=== PATIENT | female | born 1955 | race Caucasian/White ===

== ENCOUNTER 2016-08-23 05:48 | Outpatient (RCR) | payer OTHER ==
[~2016-08-23] VITALS: Ht 30.5 cm; Wt 0.5 kg
[2016-08-23] MEDS ORDERED: Glycopyrrolate 0.2mg/ml 1ml Vial ONE (05:49)
[2016-08-23] MEDS ORDERED: NS 550ML IV ONE (05:49)
[2016-08-23] MEDS ORDERED: Diazepam 10mg/2ml Inj ONE (05:49)
[2016-08-23] MEDS ORDERED: Succinylcholine 20mg/ml 10ml vial ONE (05:49)
[2016-08-23] MEDS ORDERED: Ketamine 500mg Inj ONE (05:49)
[2016-08-23] MEDS ORDERED: Heplock Flush 100 units/ml 3 ml syr IV ONE (07:30)
== END 2016-09-03 | disposition home or self-care (01) ==
LOC: ECT 05:48
DX: F31.63 Bipolar disorder, current episode mixed, severe, without psychotic features (principal); F60.9 Personality disorder, unspecified; M79.7 Fibromyalgia; M26.609 Unspecified temporomandibular joint disorder, unspecified side
CPT/HCPCS: 90870; J0330; J1642; J3360; J3490; J7040

== ENCOUNTER 2016-09-13 07:33 | Outpatient (RCR) | payer OTHER ==
[~2016-09-13] VITALS: Ht 167.6 cm; Wt 95.3 kg
[2016-09-13] MEDS ORDERED: NS 550ML IV ONE (07:34)
[2016-09-13] MEDS ORDERED: Heplock Flush 100 units/ml 3 ml syr ONE ×2 (07:34)
[2016-09-13] MEDS ORDERED: Glycopyrrolate 0.2mg/ml 1ml Vial ONE (07:34)
[2016-09-13] MEDS ORDERED: Ketamine 500mg Inj ONE (07:34)
[2016-09-13] MEDS ORDERED: Succinylcholine 20mg/ml 10ml vial ONE (07:34)
[2016-09-13] MEDS ORDERED: Diazepam 10mg/2ml Inj ONE (07:34)
[2016-09-13] MEDS ORDERED: Heplock Flush 100 units/ml 3 ml syr IV ONE (12:30)
[2016-09-18] MEDS ORDERED: NS 550ML IV ONE (12:30)
[2016-09-18] MEDS ORDERED: Diazepam 10mg/2ml Inj ONE (12:30)
[2016-09-18] MEDS ORDERED: Ketamine 500mg Inj ONE (12:30)
[2016-09-18] MEDS ORDERED: Glycopyrrolate 0.2mg/ml 1ml Vial ONE (12:30)
[2016-09-18] MEDS ORDERED: Succinylcholine 20mg/ml 10ml vial ONE (12:30)
[2016-09-18] MEDS ORDERED: Atropine Sulfate 0.4mg/ml inj IVP PRN (17:15)
[2016-09-18] MEDS ORDERED: Heplock Flush 100 units/ml 3 ml syr IV ONE (17:30)
[2016-09-20] MEDS ORDERED: Heplock Flush 100 units/ml 3 ml syr IV ONE (07:15)
[2016-09-20] MEDS ORDERED: Succinylcholine 20mg/ml 10ml vial ONE (12:30)
[2016-09-20] MEDS ORDERED: Diazepam 10mg/2ml Inj ONE (12:30)
[2016-09-20] MEDS ORDERED: Ketamine 500mg Inj ONE (12:30)
[2016-09-20] MEDS ORDERED: Glycopyrrolate 0.2mg/ml 1ml Vial ONE (12:30)
[2016-09-20] MEDS ORDERED: NS 550ML IV ONE (12:30)
[2016-09-20] MEDS ORDERED: Heplock Flush 100 units/ml 3 ml syr IV SCH (20:45)
[2016-09-25] MEDS ORDERED: NS 550ML IV ONE (07:34)
[2016-09-25] MEDS ORDERED: Glycopyrrolate 0.2mg/ml 1ml Vial ONE (07:34)
[2016-09-25] MEDS ORDERED: Ketamine 500mg Inj ONE (07:34)
[2016-09-25] MEDS ORDERED: Succinylcholine 20mg/ml 10ml vial ONE (07:34)
[2016-09-25] MEDS ORDERED: Diazepam 10mg/2ml Inj ONE (07:34)
[2016-09-25] MEDS ORDERED: Heplock Flush 100 units/ml 3 ml syr IV SCH (16:15)
[2016-09-27] MEDS ORDERED: Heplock Flush 100 units/ml 3 ml syr IV ONE ×2 (10:30→22:45)
[2016-09-27] MEDS ORDERED: Ketamine 500mg Inj ONE (22:32)
[2016-09-27] MEDS ORDERED: Glycopyrrolate 0.2mg/ml 1ml Vial ONE (22:32)
[2016-09-27] MEDS ORDERED: Succinylcholine 20mg/ml 10ml vial ONE (22:32)
[2016-09-27] MEDS ORDERED: Diazepam 10mg/2ml Inj ONE (22:32)
[2016-09-27] MEDS ORDERED: NS 550ML IV ONE (22:32)
[2016-09-30] MEDS ORDERED: Diazepam 10mg/2ml Inj ONE (12:30)
[2016-09-30] MEDS ORDERED: Glycopyrrolate 0.2mg/ml 1ml Vial ONE (12:30)
[2016-09-30] MEDS ORDERED: Succinylcholine 20mg/ml 10ml vial ONE (12:30)
[2016-09-30] MEDS ORDERED: Ketamine 500mg Inj ONE (12:30)
[2016-09-30] MEDS ORDERED: NS 550ML IV ONE (12:30)
[2016-10-02] MEDS ORDERED: Heplock Flush 100 units/ml 3 ml syr ONE (10:12)
== END 2016-10-01 | disposition home or self-care (01) ==
LOC: ECT 07:33
DX: F31.63 Bipolar disorder, current episode mixed, severe, without psychotic features (principal)
CPT/HCPCS: 90870; J0330; J1642; J3360; J3490; J7040

== ENCOUNTER 2016-10-02 11:58 | Outpatient (RCR) | payer OTHER ==
[~2016-10-02] VITALS: Ht 167.6 cm; Wt 95.3 kg
[~2016-10-02 11:58] MED LIST: Heplock Flush 100 units/ml 3 ml syr INJ ONE
[2016-10-02] MEDS ORDERED: Succinylcholine 20mg/ml 10ml vial ONE ×2 (11:59)
[2016-10-02] MEDS ORDERED: Ketamine 500mg Inj ONE ×2 (11:59)
[2016-10-02] MEDS ORDERED: NS 550ML IV ONE ×2 (11:59)
[2016-10-02] MEDS ORDERED: Diazepam 10mg/2ml Inj ONE ×2 (11:59)
[2016-10-02] MEDS ORDERED: Glycopyrrolate 0.2mg/ml 1ml Vial ONE ×2 (11:59)
[2016-10-04] MEDS ORDERED: Heplock Flush 100 units/ml 3 ml syr INJ SCH (06:40)
[2016-10-04] MEDS ORDERED: Heplock Flush 100 units/ml 3 ml syr ONE (08:10)
[2016-10-04] MEDS ORDERED: Diazepam 10mg/2ml Inj ONE (11:59)
[2016-10-04] MEDS ORDERED: Ketamine 500mg Inj ONE (11:59)
[2016-10-04] MEDS ORDERED: Succinylcholine 20mg/ml 10ml vial ONE (11:59)
[2016-10-04] MEDS ORDERED: Glycopyrrolate 0.2mg/ml 1ml Vial ONE (11:59)
[2016-10-04] MEDS ORDERED: NS 550ML IV ONE (11:59)
[2016-10-11] MEDS ORDERED: Heplock Flush 100 units/ml 3 ml syr IV ONE (07:38)
[2016-10-11] MEDS ORDERED: Atropine Sulfate 0.4mg/ml inj IVP PRN ×2 (07:38→11:30)
[2016-10-11] MEDS ORDERED: Glycopyrrolate 0.2mg/ml 1ml Vial ONE (11:59)
[2016-10-11] MEDS ORDERED: Ketamine 500mg Inj ONE (11:59)
[2016-10-11] MEDS ORDERED: NS 550ML IV ONE (11:59)
[2016-10-11] MEDS ORDERED: Succinylcholine 20mg/ml 10ml vial ONE (11:59)
[2016-10-11] MEDS ORDERED: Diazepam 10mg/2ml Inj ONE (11:59)
[2016-10-16] MEDS ORDERED: Ketamine 500mg Inj ONE (08:00)
[2016-10-16] MEDS ORDERED: Glycopyrrolate 0.2mg/ml 1ml Vial ONE (08:00)
[2016-10-16] MEDS ORDERED: Succinylcholine 20mg/ml 10ml vial ONE (08:00)
[2016-10-16] MEDS ORDERED: NS 550ML IV ONE (08:00)
[2016-10-16] MEDS ORDERED: Diazepam 10mg/2ml Inj ONE (08:00)
[2016-10-16] MEDS ORDERED: Heplock Flush 100 units/ml 3 ml syr IV ONE ×2 (09:35→14:45)
[2016-10-18] MEDS ORDERED: Diazepam 10mg/2ml Inj ONE (08:00)
[2016-10-18] MEDS ORDERED: Succinylcholine 20mg/ml 10ml vial ONE (08:00)
[2016-10-18] MEDS ORDERED: NS 550ML IV ONE (08:00)
[2016-10-18] MEDS ORDERED: Glycopyrrolate 0.2mg/ml 1ml Vial ONE (08:00)
[2016-10-18] MEDS ORDERED: Ketamine 500mg Inj ONE (08:00)
[2016-10-18] MEDS ORDERED: Heplock Flush 100 units/ml 3 ml syr IV ONE (08:55)
[2016-10-18] MEDS ORDERED: Heplock Flush 100 units/ml 3 ml syr ONE (12:30)
[2016-10-21] MEDS ORDERED: Atropine Sulfate 0.4mg/ml inj IVP PRN (05:30)
[2016-10-21] MEDS ORDERED: Heplock Flush 100 units/ml 3 ml syr IV ONE (09:45)
[2016-10-21] MEDS ORDERED: NS 550ML IV ONE (11:59)
[2016-10-21] MEDS ORDERED: Diazepam 10mg/2ml Inj ONE (11:59)
[2016-10-21] MEDS ORDERED: Ketamine 500mg Inj ONE (11:59)
[2016-10-21] MEDS ORDERED: Glycopyrrolate 0.2mg/ml 1ml Vial ONE (11:59)
[2016-10-21] MEDS ORDERED: Succinylcholine 20mg/ml 10ml vial ONE (11:59)
[2016-10-23] MEDS ORDERED: Atropine Sulfate 0.4mg/ml inj IVP PRN (08:00)
[2016-10-23] MEDS ORDERED: Diazepam 10mg/2ml Inj ONE (08:00)
[2016-10-23] MEDS ORDERED: Succinylcholine 20mg/ml 10ml vial ONE (08:00)
[2016-10-23] MEDS ORDERED: Glycopyrrolate 0.2mg/ml 1ml Vial ONE (08:00)
[2016-10-23] MEDS ORDERED: Ketamine 500mg Inj ONE (08:00)
[2016-10-23] MEDS ORDERED: NS 550ML IV ONE (08:00)
[2016-10-23] MEDS ORDERED: Heplock Flush 100 units/ml 3 ml syr IV ONE (10:15)
[2016-10-25] MEDS ORDERED: Heplock Flush 100 units/ml 3 ml syr IV ONE ×2 (07:15→07:48)
[2016-10-30] MEDS ORDERED: Heplock Flush 100 units/ml 3 ml syr IV ONE (07:00)
[2016-10-30] MEDS ORDERED: Ketamine 500mg Inj ONE (11:00)
[2016-10-30] MEDS ORDERED: Succinylcholine 20mg/ml 10ml vial ONE (11:00)
[2016-10-30] MEDS ORDERED: Glycopyrrolate 0.2mg/ml 1ml Vial ONE (11:00)
[2016-10-30] MEDS ORDERED: Diazepam 10mg/2ml Inj ONE (11:00)
[2016-10-30] MEDS ORDERED: NS 550ML IV ONE (11:00)
== END 2016-11-01 | disposition home or self-care (01) ==
LOC: ECT 11:58
DX: F31.63 Bipolar disorder, current episode mixed, severe, without psychotic features (principal); Z88.0 Allergy status to penicillin; Z88.8 Allergy status to other drugs, medicaments and biological substances
CPT/HCPCS: 90870; J0330; J1642; J3360; J3490; J7040

== ENCOUNTER 2016-11-08 05:09 | Outpatient (RCR) | payer OTHER ==
[~2016-11-08] VITALS: Ht 167.6 cm; Wt 95.3 kg
[2016-11-08] MEDS ORDERED: Succinylcholine 20mg/ml 10ml vial ONE ×2 (05:10)
[2016-11-08] MEDS ORDERED: Diazepam 10mg/2ml Inj ONE ×2 (05:10)
[2016-11-08] MEDS ORDERED: NS 550ML IV ONE (05:10)
[2016-11-08] MEDS ORDERED: Ketamine 500mg Inj ONE ×2 (05:10)
[2016-11-08] MEDS ORDERED: Glycopyrrolate 0.2mg/ml 1ml Vial ONE ×2 (05:10)
[2016-11-08] MEDS ORDERED: Heplock Flush 100 units/ml 3 ml syr ONE ×2 (05:10)
[2016-11-08] MEDS ORDERED: Heplock Flush 100 units/ml 3 ml syr IV ONE (07:20)
[2016-11-15] MEDS ORDERED: Heplock Flush 100 units/ml 3 ml syr IV ONE (09:00)
[2016-11-15] MEDS ORDERED: Glycopyrrolate 0.2mg/ml 1ml Vial ONE (21:14)
[2016-11-15] MEDS ORDERED: Ketamine 500mg Inj ONE (21:14)
[2016-11-15] MEDS ORDERED: Succinylcholine 20mg/ml 10ml vial ONE (21:14)
[2016-11-15] MEDS ORDERED: NS 550ML IV ONE (21:14)
[2016-11-15] MEDS ORDERED: Diazepam 10mg/2ml Inj ONE (21:14)
[2016-11-22] MEDS ORDERED: Succinylcholine 20mg/ml 10ml vial ONE (07:00)
[2016-11-22] MEDS ORDERED: Diazepam 10mg/2ml Inj ONE (07:00)
[2016-11-22] MEDS ORDERED: Glycopyrrolate 0.2mg/ml 1ml Vial ONE (07:00)
[2016-11-22] MEDS ORDERED: NS 550ML IV ONE (07:00)
[2016-11-22] MEDS ORDERED: Ketamine 500mg Inj ONE (07:00)
[2016-11-22] MEDS ORDERED: Heplock Flush 100 units/ml 3 ml syr INJ ONE (18:30)
[2016-11-29] MEDS ORDERED: Succinylcholine 20mg/ml 10ml vial ONE (08:00)
[2016-11-29] MEDS ORDERED: NS 550ML IV ONE (08:00)
[2016-11-29] MEDS ORDERED: Diazepam 10mg/2ml Inj ONE (08:00)
[2016-11-29] MEDS ORDERED: Glycopyrrolate 0.2mg/ml 1ml Vial ONE (08:00)
[2016-11-29] MEDS ORDERED: Ketamine 500mg Inj ONE (08:00)
[2016-11-29] MEDS ORDERED: Heplock Flush 100 units/ml 3 ml syr ONE (13:28)
[2016-11-29] MEDS ORDERED: Heplock Flush 100 units/ml 3 ml syr IV ONE (15:15)
== END 2016-12-01 | disposition home or self-care (01) ==
LOC: ECT 05:09
DX: F31.63 Bipolar disorder, current episode mixed, severe, without psychotic features (principal)
CPT/HCPCS: 90870; J0330; J1642; J3360; J3490; J7040

== ENCOUNTER 2016-12-06 06:08 | Outpatient (RCR) | payer OTHER ==
[~2016-12-06] VITALS: Ht 167.6 cm; Wt 95.3 kg
[~2016-12-06 06:08] MED LIST changes: -Heplock Flush 100 units/ml 3 ml syr INJ ONE; +Methohexital Sodium Syr 100mg/10ml IVP ONE; +NS 550ML IV ONE; +Succinylcholine 20mg/ml 10ml vial ONE
[2016-12-06] MEDS ORDERED: Succinylcholine 20mg/ml 10ml vial ONE (06:09)
[2016-12-06] MEDS ORDERED: Glycopyrrolate 0.2mg/ml 1ml Vial ONE (06:09)
[2016-12-06] MEDS ORDERED: NS 550ML IV ONE (06:09)
[2016-12-06] MEDS ORDERED: Ketamine 500mg Inj ONE (06:09)
[2016-12-06] MEDS ORDERED: Diazepam 10mg/2ml Inj ONE (06:09)
[2016-12-06] MEDS ORDERED: Heplock Flush 100 units/ml 3 ml syr ONE (06:09)
[2016-12-06] MEDS ORDERED: Heplock Flush 100 units/ml 3 ml syr INJ ONE (08:47)
[2016-12-16] MEDS ORDERED: Glycopyrrolate 0.2mg/ml 1ml Vial ONE (07:00)
[2016-12-16] MEDS ORDERED: Succinylcholine 20mg/ml 10ml vial ONE (07:00)
[2016-12-16] MEDS ORDERED: Ketamine 500mg Inj ONE (07:00)
[2016-12-16] MEDS ORDERED: Diazepam 10mg/2ml Inj ONE (07:00)
[2016-12-16] MEDS ORDERED: NS 550ML IV ONE (07:00)
[2016-12-16] MEDS ORDERED: Heplock Flush 100 units/ml 3 ml syr INJ ONE (07:20)
[2016-12-16] MEDS ORDERED: Heplock Flush 100 units/ml 3 ml syr ONE (07:48)
[2016-12-18] MEDS ORDERED: Heplock Flush 100 units/ml 3 ml syr INJ ONE (07:00)
[2016-12-18] MEDS ORDERED: Ketamine 500mg Inj ONE (07:00)
[2016-12-18] MEDS ORDERED: Diazepam 10mg/2ml Inj ONE (07:00)
[2016-12-18] MEDS ORDERED: Succinylcholine 20mg/ml 10ml vial ONE (07:00)
[2016-12-18] MEDS ORDERED: Glycopyrrolate 0.2mg/ml 1ml Vial ONE (07:00)
[2016-12-18] MEDS ORDERED: NS 550ML IV ONE (07:00)
[2016-12-18] MEDS ORDERED: Heplock Flush 100 units/ml 3 ml syr ONE (14:18)
[2016-12-20] MEDS ORDERED: NS 550ML IV ONE (08:00)
[2016-12-20] MEDS ORDERED: Heplock Flush 100 units/ml 3 ml syr IV SCH (08:00)
[2016-12-20] MEDS ORDERED: Ketamine 500mg Inj ONE ×2 (08:00→12:00)
[2016-12-20] MEDS ORDERED: Succinylcholine 20mg/ml 10ml vial ONE (08:00)
[2016-12-20] MEDS ORDERED: Diazepam 10mg/2ml Inj ONE (08:00)
[2016-12-20] MEDS ORDERED: Glycopyrrolate 0.2mg/ml 1ml Vial ONE (08:00)
[2016-12-20] MEDS ORDERED: Heplock Flush 100 units/ml 3 ml syr ONE (12:30)
[2016-12-27] MEDS ORDERED: NS 550ML IV ONE (07:00)
[2016-12-27] MEDS ORDERED: Glycopyrrolate 0.2mg/ml 1ml Vial ONE (07:00)
[2016-12-27] MEDS ORDERED: Diazepam 10mg/2ml Inj ONE (07:00)
[2016-12-27] MEDS ORDERED: Succinylcholine 20mg/ml 10ml vial ONE (07:00)
[2016-12-27] MEDS ORDERED: Ketamine 500mg Inj ONE (07:00)
[2016-12-27] MEDS ORDERED: Heplock Flush 100 units/ml 3 ml syr INJ ONE (08:45)
== END 2017-01-01 | disposition home or self-care (01) ==
LOC: ECT 06:08
DX: F31.63 Bipolar disorder, current episode mixed, severe, without psychotic features (principal)
CPT/HCPCS: 90870; J0330; J1642; J3360; J3490; J7040; J2405

== ENCOUNTER 2017-01-03 06:24 | Outpatient (RCR) | payer OTHER ==
[~2017-01-03] VITALS: Ht 167.6 cm; Wt 95.3 kg
[2017-01-03] MEDS ORDERED: NS 550ML IV ONE (06:25)
[2017-01-03] MEDS ORDERED: Ketamine 500mg Inj ONE (06:25)
[2017-01-03] MEDS ORDERED: Succinylcholine 20mg/ml 10ml vial ONE (06:25)
[2017-01-03] MEDS ORDERED: Glycopyrrolate 0.2mg/ml 1ml Vial ONE (06:25)
[2017-01-03] MEDS ORDERED: Diazepam 10mg/2ml Inj ONE (06:25)
[2017-01-03] MEDS ORDERED: Heplock Flush 100 units/ml 3 ml syr ONE ×3 (06:25→07:30)
[2017-01-03] MEDS ORDERED: Heplock Flush 100 units/ml 3 ml syr INJ ONE (08:25)
[2017-01-10] MEDS ORDERED: Ketamine 500mg Inj ONE (07:00)
[2017-01-10] MEDS ORDERED: Succinylcholine 20mg/ml 10ml vial ONE (07:00)
[2017-01-10] MEDS ORDERED: NS 550ML IV ONE (07:00)
[2017-01-10] MEDS ORDERED: Glycopyrrolate 0.2mg/ml 1ml Vial ONE (07:00)
[2017-01-10] MEDS ORDERED: Diazepam 10mg/2ml Inj ONE (07:00)
[2017-01-10] MEDS ORDERED: Heplock Flush 100 units/ml 3 ml syr IV ONE (07:30)
[2017-01-10] MEDS ORDERED: Atropine Sulfate 0.4mg/ml inj IVP PRN (07:30)
[2017-01-17] MEDS ORDERED: NS 550ML IV ONE (07:00)
[2017-01-17] MEDS ORDERED: Diazepam 10mg/2ml Inj ONE (07:00)
[2017-01-17] MEDS ORDERED: Glycopyrrolate 0.2mg/ml 1ml Vial ONE (07:00)
[2017-01-17] MEDS ORDERED: Succinylcholine 20mg/ml 10ml vial ONE (07:00)
[2017-01-17] MEDS ORDERED: Ketamine 500mg Inj ONE (07:00)
[2017-01-17] MEDS ORDERED: Heplock Flush 100 units/ml 3 ml syr INJ ONE (07:20)
[2017-01-24] MEDS ORDERED: Heplock Flush 100 units/ml 3 ml syr INJ ONE (07:15)
[2017-01-24] MEDS ORDERED: Glycopyrrolate 0.2mg/ml 1ml Vial ONE (08:00)
[2017-01-24] MEDS ORDERED: Succinylcholine 20mg/ml 10ml vial ONE (08:00)
[2017-01-24] MEDS ORDERED: NS 550ML IV ONE (08:00)
[2017-01-24] MEDS ORDERED: Ketamine 500mg Inj ONE (08:00)
[2017-01-24] MEDS ORDERED: Diazepam 10mg/2ml Inj ONE (08:00)
== END 2017-01-31 | disposition home or self-care (01) ==
LOC: ECT 06:24
DX: F31.63 Bipolar disorder, current episode mixed, severe, without psychotic features (principal)
CPT/HCPCS: 90870; J0330; J1642; J3360; J3490; J7040

== ENCOUNTER 2017-02-05 06:15 | Outpatient (RCR) | payer MEDICARE, OTHER ==
[~2017-02-05] VITALS: Ht 167.6 cm; Wt 95.3 kg
[2017-02-05] MEDS ORDERED: Succinylcholine 20mg/ml 10ml vial ONE ×2 (06:16)
[2017-02-05] MEDS ORDERED: Heplock Flush 100 units/ml 3 ml syr ONE (06:16)
[2017-02-05] MEDS ORDERED: Glycopyrrolate 0.2mg/ml 1ml Vial ONE ×2 (06:16)
[2017-02-05] MEDS ORDERED: Ketamine 500mg Inj ONE ×2 (06:16)
[2017-02-05] MEDS ORDERED: NS 500ML IV ONE ×2 (06:16)
[2017-02-05] MEDS ORDERED: Sodium Chloride 500ML 500 ML IV ONE (07:45)
[2017-02-05] MEDS ORDERED: Excedrin Migraine tab ORAL PRN (07:45)
[2017-02-05] MEDS ORDERED: Heplock Flush 100 units/ml 3 ml syr INJ ONE (07:45)
[2017-02-17] MEDS ORDERED: Sodium Chloride 500ML 500 ML IV ONE (07:35)
[2017-02-17] MEDS ORDERED: Heplock Flush 100 units/ml 3 ml syr IV ONE (08:00)
[2017-02-17] MEDS ORDERED: NS 500ML IV ONE (08:00)
[2017-02-17] MEDS ORDERED: Glycopyrrolate 0.2mg/ml 1ml Vial ONE (08:00)
[2017-02-17] MEDS ORDERED: Ketamine 500mg Inj ONE (08:00)
[2017-02-17] MEDS ORDERED: Succinylcholine 20mg/ml 10ml vial ONE (08:00)
[2017-03-03] MEDS ORDERED: Sodium Chloride 500ML 500 ML IV ONE (08:06)
[2017-03-03] MEDS ORDERED: Heplock Flush 100 units/ml 3 ml syr INJ ONE (08:06)
[2017-03-03] MEDS ORDERED: Ketamine 500mg Inj ONE (10:18)
[2017-03-03] MEDS ORDERED: Glycopyrrolate 0.2mg/ml 1ml Vial ONE (10:18)
[2017-03-03] MEDS ORDERED: NS 500ML IV ONE (10:18)
[2017-03-03] MEDS ORDERED: Succinylcholine 20mg/ml 10ml vial ONE (10:18)
== END 2017-03-03 | disposition home or self-care (01) ==
LOC: ECT 06:15
DX: F31.63 Bipolar disorder, current episode mixed, severe, without psychotic features (principal)
CPT/HCPCS: 90870; J0330; J1642; J3360; J3490; J7040

== ENCOUNTER 2017-03-17 06:29 | Outpatient (RCR) | payer OTHER ==
[~2017-03-17] VITALS: Ht 167.6 cm; Wt 95.3 kg
[2017-03-17] MEDS ORDERED: Heplock Flush 100 units/ml 3 ml syr ONE (06:30)
[2017-03-17] MEDS ORDERED: Glycopyrrolate 0.2mg/ml 1ml Vial ONE (06:30)
[2017-03-17] MEDS ORDERED: Succinylcholine 20mg/ml 10ml vial ONE (06:30)
[2017-03-17] MEDS ORDERED: NS 550ML IV ONE (06:30)
[2017-03-17] MEDS ORDERED: Ketamine 500mg Inj ONE (06:30)
[2017-03-17] MEDS ORDERED: Heplock Flush 100 units/ml 3 ml syr INJ ONE (07:40)
== END 2017-04-03 | disposition home or self-care (01) ==
LOC: ECT 06:29
DX: F31.63 Bipolar disorder, current episode mixed, severe, without psychotic features (principal)
CPT/HCPCS: 90870; J0330; J1642; J3360; J3490; J7040

== ENCOUNTER 2017-04-04 04:41 | Outpatient (RCR) | payer MEDICARE, OTHER ==
[~2017-04-04] VITALS: Ht 167.6 cm; Wt 95.3 kg
[2017-04-04] MEDS ORDERED: NS 500ML IV ONE (04:42)
[2017-04-04] MEDS ORDERED: Glycopyrrolate 0.2mg/ml 1ml Vial ONE (04:42)
[2017-04-04] MEDS ORDERED: Ketamine 500mg Inj ONE (04:42)
[2017-04-04] MEDS ORDERED: Succinylcholine 20mg/ml 10ml vial ONE (04:42)
[2017-04-04] MEDS ORDERED: Atropine Sulfate 0.4mg/ml inj IVP PRN (07:30)
[2017-04-04] MEDS ORDERED: Sodium Chloride 500ML 500 ML IV ONE (07:30)
[2017-04-04] MEDS ORDERED: Heplock Flush 100 units/ml 3 ml syr INJ ONE (07:30)
[2017-04-04] MEDS ORDERED: Heplock Flush 100 units/ml 3 ml syr IV ONE (10:00)
[2017-04-23] MEDS ORDERED: Ketamine 500mg Inj ONE (07:00)
[2017-04-23] MEDS ORDERED: Glycopyrrolate 0.2mg/ml 1ml Vial ONE (07:00)
[2017-04-23] MEDS ORDERED: Succinylcholine 20mg/ml 10ml vial ONE (07:00)
[2017-04-23] MEDS ORDERED: NS 500ML IV ONE (07:00)
[2017-04-23] MEDS ORDERED: Sodium Chloride 500ML 500 ML IV ONE (07:35)
[2017-04-23] MEDS ORDERED: Heplock Flush 100 units/ml 3 ml syr IV ONE ×2 (07:35→08:00)
== END 2017-05-03 | disposition home or self-care (01) ==
LOC: ECT 04:41
DX: F31.63 Bipolar disorder, current episode mixed, severe, without psychotic features (principal)
CPT/HCPCS: 90870; J0330; J1642; J3360; J3490; J7040

== ENCOUNTER 2017-05-19 11:38 | Outpatient (RCR) | payer OTHER | END 2017-06-03 | disposition home or self-care (01) | LOC: ECT 11:38 | DX: F31.63 Bipolar disorder, current episode mixed, severe, without psychotic features (principal) | CPT/HCPCS: 90870; J0330; J3360; J3490; J7040 ==

== ENCOUNTER 2017-06-16 05:56 | Outpatient (RCR) | payer OTHER ==
[~2017-06-16] VITALS: Ht 167.6 cm; Wt 95.3 kg
[2017-06-16] MEDS ORDERED: Succinylcholine 20mg/ml 10ml vial ONE (05:57)
[2017-06-16] MEDS ORDERED: Glycopyrrolate 0.2mg/ml 1ml Vial ONE (05:57)
[2017-06-16] MEDS ORDERED: NS 500ML ONE (05:57)
[2017-06-16] MEDS ORDERED: Ketamine 500mg Inj ONE (05:57)
[2017-06-16] MEDS ORDERED: Heplock Flush 100 units/ml 3 ml syr ONE (08:03)
[2017-06-16] MEDS ORDERED: Sodium Chloride 500ML 500 ML IV ONE (08:03)
[2017-06-16] MEDS ORDERED: Heplock Flush 100 units/ml 3 ml syr INJ ONE (08:03)
[2017-06-16 08:15] VITALS: BP 149/84
[2017-06-16 08:30] VITALS: BP 165/91
[2017-06-16 08:35] VITALS: BP 183/94
[2017-06-16 08:40] VITALS: BP 169/92
[2017-06-16 08:45] VITALS: BP 158/85
== END 2017-07-03 | disposition home or self-care (01) ==
LOC: ECT 05:56
DX: F31.63 Bipolar disorder, current episode mixed, severe, without psychotic features (principal)
CPT/HCPCS: 90870; J0330; J1642; J3360; J3490; J7040

== ENCOUNTER 2017-07-11 06:45 | Outpatient (RCR) | payer MEDICARE, OTHER ==
[~2017-07-11] VITALS: Ht 167.6 cm; Wt 95.3 kg
[2017-07-11] MEDS ORDERED: Heplock Flush 100 units/ml 3 ml syr ONE (06:46)
[2017-07-11] MEDS ORDERED: Glycopyrrolate 0.2mg/ml 1ml Vial ONE ×2 (06:46)
[2017-07-11] MEDS ORDERED: Succinylcholine 20mg/ml 10ml vial ONE ×2 (06:46)
[2017-07-11] MEDS ORDERED: NS 500ML ONE ×2 (06:46)
[2017-07-11] MEDS ORDERED: Ketamine 500mg Inj ONE ×2 (06:46)
[2017-07-11] MEDS ORDERED: Sodium Chloride 500ML 500 ML IV ONE (08:15)
[2017-07-11] MEDS ORDERED: Heplock Flush 100 units/ml 3 ml syr IV ONE (08:15)
[2017-07-11 08:28] VITALS: BP 137/79
[2017-07-11 08:40] VITALS: BP 185/89
[2017-07-11 08:45] VITALS: BP 172/90
[2017-07-11 08:50] VITALS: BP 165/83
[2017-07-11 08:55] VITALS: BP 164/90
[2017-07-18] MEDS ORDERED: Sodium Chloride 500ML 500 ML IV ONE (07:40)
[2017-07-18] MEDS ORDERED: Heplock Flush 100 units/ml 3 ml syr INJ ONE (07:40)
[2017-07-18 08:07] VITALS: BP 148/87
[2017-07-18 08:25] VITALS: BP 168/90
[2017-07-18 08:31] VITALS: BP 165/98
[2017-07-18 08:36] VITALS: BP 159/86
[2017-07-18 08:41] VITALS: BP 150/86
[2017-07-18 08:46] VITALS: BP 143/77
[2017-07-18] MEDS ORDERED: Heplock Flush 100 units/ml 3 ml syr IV SCH (09:15)
[2017-07-23] MEDS ORDERED: Glycopyrrolate 0.2mg/ml 1ml Vial ONE (06:00)
[2017-07-23] MEDS ORDERED: Ketamine 500mg Inj ONE (06:00)
[2017-07-23] MEDS ORDERED: Succinylcholine 20mg/ml 10ml vial ONE (06:00)
[2017-07-23] MEDS ORDERED: NS 500ML ONE (06:00)
[2017-07-23] MEDS ORDERED: Sodium Chloride 500ML 500 ML IV ONE ×2 (07:30)
[2017-07-23] MEDS ORDERED: Heplock Flush 100 units/ml 3 ml syr INJ ONE ×2 (07:30)
[2017-07-23 08:01] VITALS: BP 146/80
[2017-07-23 08:15] VITALS: BP 182/86
[2017-07-23 08:20] VITALS: BP 176/74
[2017-07-23 08:25] VITALS: BP 160/75
[2017-07-23 08:30] VITALS: BP 156/72
[2017-08-01] MEDS ORDERED: NS 500ML ONE (07:00)
[2017-08-01] MEDS ORDERED: Ketamine 500mg Inj ONE (07:00)
[2017-08-01] MEDS ORDERED: Glycopyrrolate 0.2mg/ml 1ml Vial ONE (07:00)
[2017-08-01] MEDS ORDERED: Succinylcholine 20mg/ml 10ml vial ONE (07:00)
[2017-08-01] MEDS ORDERED: Atropine Sulfate 0.4mg/ml inj IVP PRN (07:12)
[2017-08-01] MEDS ORDERED: Sodium Chloride 500ML 500 ML IV ONE (07:12)
[2017-08-01] MEDS ORDERED: Heplock Flush 100 units/ml 3 ml syr INJ ONE (07:12)
[2017-08-01 07:26] VITALS: BP 137/78
[2017-08-01 07:45] VITALS: BP 169/92
[2017-08-01 07:50] VITALS: BP 175/84
[2017-08-01 07:55] VITALS: BP 172/76
[2017-08-01 08:00] VITALS: BP 164/71
[2017-08-01 08:05] VITALS: BP 159/79
== END 2017-08-03 | disposition home or self-care (01) ==
LOC: ECT 06:45
DX: F31.63 Bipolar disorder, current episode mixed, severe, without psychotic features (principal)
CPT/HCPCS: 90870; J0330; J1642; J3360; J3490; J7040

== ENCOUNTER 2017-08-06 11:47 | Outpatient (RCR) | payer OTHER ==
[~2017-08-06] VITALS: Ht 167.6 cm; Wt 95.3 kg
[2017-08-06 11:17] VITALS: BP 148/83
[2017-08-06 11:40] VITALS: BP 180/76
[2017-08-06 11:45] VITALS: BP 158/74
[~2017-08-06 11:47] MED LIST changes: -Methohexital Sodium Syr 100mg/10ml IVP ONE; -NS 550ML IV ONE; +Sodium Chloride 500ML 500 ML IV ONE; -Succinylcholine 20mg/ml 10ml vial ONE
[2017-08-06] MEDS ORDERED: Ketamine HCl 100mg syr ONE (11:48)
[2017-08-06] MEDS ORDERED: Ketamine 500mg Inj ONE (11:48)
[2017-08-06] MEDS ORDERED: NS 500ML ONE ×2 (11:48)
[2017-08-06] MEDS ORDERED: Succinylcholine 20mg/ml 10ml vial ONE ×2 (11:48)
[2017-08-06] MEDS ORDERED: Glycopyrrolate 0.2mg/ml 1ml Vial ONE ×2 (11:48)
[2017-08-06 11:50] VITALS: BP 156/83
[2017-08-06 11:55] VITALS: BP 160/74
[2017-08-06 12:00] VITALS: BP 151/80
[2017-08-06] MEDS ORDERED: Heplock Flush 100 units/ml 3 ml syr IV ONE (12:15)
[2017-08-08] MEDS ORDERED: Heplock Flush 100 units/ml 3 ml syr ONE (07:18)
[2017-08-08 07:47] VITALS: BP 153/89
[2017-08-08] MEDS ORDERED: Sodium Chloride 500ML 500 ML IV ONE (08:03)
[2017-08-08] MEDS ORDERED: Heplock Flush 100 units/ml 3 ml syr INJ ONE (08:03)
[2017-08-08 08:05] VITALS: BP 197/90
[2017-08-08 08:10] VITALS: BP 189/77
[2017-08-08 08:15] VITALS: BP 172/66
[2017-08-08 08:20] VITALS: BP 166/67
[2017-08-08 09:30] VITALS: BP 159/71
[2017-08-13] MEDS ORDERED: Succinylcholine 20mg/ml 10ml vial ONE (07:00)
[2017-08-13] MEDS ORDERED: Ketamine 500mg Inj ONE (07:00)
[2017-08-13] MEDS ORDERED: NS 500ML ONE (07:00)
[2017-08-13] MEDS ORDERED: Glycopyrrolate 0.2mg/ml 1ml Vial ONE (07:00)
[2017-08-13 11:43] VITALS: BP 153/84
[2017-08-13] MEDS ORDERED: Atropine Sulfate 0.4mg/ml inj IVP PRN (12:03)
[2017-08-13] MEDS ORDERED: Heplock Flush 100 units/ml 3 ml syr IV ONE (12:03)
[2017-08-13] MEDS ORDERED: Sodium Chloride 500ML 500 ML IV ONE (12:03)
[2017-08-13 12:05] VITALS: BP 155/94
[2017-08-13 12:10] VITALS: BP 158/85
[2017-08-13 12:15] VITALS: BP 157/79
[2017-08-15] VITALS (7 sets, daily range): BP systolic 156–213; BP diastolic 75–106
[2017-08-15] MEDS ORDERED: Sodium Chloride 500ML 500 ML IV ONE (07:30)
[2017-08-15] MEDS ORDERED: Heplock Flush 100 units/ml 3 ml syr ONE (07:30)
[2017-08-15] MEDS ORDERED: Heplock Flush 100 units/ml 3 ml syr INJ ONE (07:30)
[2017-08-15] MEDS ORDERED: NS 500ML ONE (08:00)
[2017-08-15] MEDS ORDERED: Glycopyrrolate 0.2mg/ml 1ml Vial ONE (08:00)
[2017-08-15] MEDS ORDERED: Succinylcholine 20mg/ml 10ml vial ONE (08:00)
[2017-08-15] MEDS ORDERED: Ketamine 500mg Inj ONE (08:00)
[2017-08-22 07:48] VITALS: BP 130/84
[2017-08-22] MEDS ORDERED: Ketamine 500mg Inj ONE (08:00)
[2017-08-22] MEDS ORDERED: Glycopyrrolate 0.2mg/ml 1ml Vial ONE (08:00)
[2017-08-22] MEDS ORDERED: Succinylcholine 20mg/ml 10ml vial ONE (08:00)
[2017-08-22] MEDS ORDERED: NS 500ML ONE (08:00)
[2017-08-22] MEDS ORDERED: Heplock Flush 100 units/ml 3 ml syr IV ONE ×2 (08:08→10:16)
[2017-08-22] MEDS ORDERED: Sodium Chloride 500ML 500 ML IV ONE (08:08)
[2017-08-22 08:10] VITALS: BP 189/81
[2017-08-22 08:15] VITALS: BP 187/74
[2017-08-22 08:20] VITALS: BP 172/74
[2017-08-22 08:25] VITALS: BP 173/66
[2017-08-22] MEDS ORDERED: NS 500ML IV ONE (10:15)
[2017-08-29] MEDS ORDERED: Succinylcholine 20mg/ml 10ml vial ONE (07:00)
[2017-08-29] MEDS ORDERED: NS 500ML ONE (07:00)
[2017-08-29] MEDS ORDERED: Glycopyrrolate 0.2mg/ml 1ml Vial ONE (07:00)
[2017-08-29] MEDS ORDERED: Ketamine 500mg Inj ONE (07:00)
[2017-08-29] MEDS ORDERED: Sodium Chloride 500ML 500 ML IV ONE (07:35)
[2017-08-29] MEDS ORDERED: Heplock Flush 100 units/ml 3 ml syr INJ ONE (07:35)
[2017-08-29 07:43] VITALS: BP 176/89
[2017-08-29 08:10] VITALS: BP 208/101
[2017-08-29 08:15] VITALS: BP 194/86
[2017-08-29 08:20] VITALS: BP 180/87
[2017-08-29 08:25] VITALS: BP 172/75
[2017-08-29] MEDS ORDERED: Heplock Flush 100 units/ml 3 ml syr ONE (10:00)
[2017-09-03 11:13] VITALS: BP 156/89
[2017-09-03 11:25] VITALS: BP 204/95
[2017-09-03 11:30] VITALS: BP 184/80
[2017-09-03 11:35] VITALS: BP 183/75
[2017-09-03 11:40] VITALS: BP 157/79
== END 2017-09-03 | disposition home or self-care (01) ==
LOC: ECT 11:47
DX: F31.63 Bipolar disorder, current episode mixed, severe, without psychotic features (principal); F60.9 Personality disorder, unspecified; M79.7 Fibromyalgia; M26.609 Unspecified temporomandibular joint disorder, unspecified side
CPT/HCPCS: 90870; J0330; J1642; J3360; J3490; J7040

== ENCOUNTER → 2017-09-03 | Outpatient (RCR) | payer OTHER ==
[~2017-09-03] VITALS: Ht 30.5 cm; Wt 0.5 kg
[~2017-09-03] MED LIST changes: +Glycopyrrolate 0.2mg/ml 1ml Vial ONE; +Heplock Flush 100 units/ml 3 ml syr IV ONE; +Ketamine 500mg Inj ONE
== END | disposition home or self-care (01) ==
LOC: ECT 05:50
DX: F31.63 Bipolar disorder, current episode mixed, severe, without psychotic features (principal)
CPT/HCPCS: J1642; J3360; J3490

== ENCOUNTER 2017-09-05 05:35 | Outpatient (RCR) | payer OTHER ==
[~2017-09-05] VITALS: Ht 167.6 cm; Wt 95.3 kg
[2017-09-05] MEDS ORDERED: Ketamine 500mg Inj ONE ×2 (05:36)
[2017-09-05] MEDS ORDERED: Glycopyrrolate 0.2mg/ml 1ml Vial ONE ×2 (05:36)
[2017-09-05] MEDS ORDERED: Succinylcholine 20mg/ml 10ml vial ONE ×2 (05:36)
[2017-09-05] MEDS ORDERED: NS 500ML ONE ×2 (05:36)
[2017-09-05] MEDS ORDERED: Sodium Chloride 500ML 500 ML IV ONE (07:30)
[2017-09-05] MEDS ORDERED: Heplock Flush 100 units/ml 3 ml syr INJ ONE (07:30)
[2017-09-05 07:46] VITALS: BP 150/76
[2017-09-05 08:05] VITALS: BP 212/88
[2017-09-05 08:10] VITALS: BP 168/79
[2017-09-05 08:15] VITALS: BP 159/80
[2017-09-05 08:20] VITALS: BP 171/75
[2017-09-05 08:25] VITALS: BP 157/75
[2017-09-10] MEDS ORDERED: Succinylcholine 20mg/ml 10ml vial ONE (07:00)
[2017-09-10] MEDS ORDERED: NS 500ML ONE (07:00)
[2017-09-10] MEDS ORDERED: Glycopyrrolate 0.2mg/ml 1ml Vial ONE (07:00)
[2017-09-10] MEDS ORDERED: Ketamine 500mg Inj ONE (07:00)
[2017-09-10] MEDS ORDERED: Sodium Chloride 500ML 500 ML IV ONE (10:45)
[2017-09-10] MEDS ORDERED: Heplock Flush 100 units/ml 3 ml syr INJ ONE (10:45)
[2017-09-10 10:59] VITALS: BP 156/80
[2017-09-10 11:15] VITALS: BP 162/106
[2017-09-10 11:20] VITALS: BP 179/77
[2017-09-10 11:25] VITALS: BP 176/74
[2017-09-10 11:30] VITALS: BP 162/66
[2017-09-12] MEDS ORDERED: Succinylcholine 20mg/ml 10ml vial ONE (07:00)
[2017-09-12] MEDS ORDERED: Ketamine 500mg Inj ONE (07:00)
[2017-09-12] MEDS ORDERED: NS 500ML ONE (07:00)
[2017-09-12] MEDS ORDERED: Glycopyrrolate 0.2mg/ml 1ml Vial ONE (07:00)
[2017-09-12] MEDS ORDERED: Sodium Chloride 500ML 500 ML IV ONE (07:35)
[2017-09-12] MEDS ORDERED: Heplock Flush 100 units/ml 3 ml syr INJ ONE (07:35)
[2017-09-12] MEDS ORDERED: Heplock Flush 100 units/ml 3 ml syr IV ONE (07:35)
[2017-09-12 08:04] VITALS: BP 154/79
[2017-09-12 08:20] VITALS: BP 169/105
[2017-09-12 08:25] VITALS: BP 186/74
[2017-09-12 08:30] VITALS: BP 158/72
[2017-09-12 08:35] VITALS: BP 160/68
[2017-09-19] MEDS ORDERED: Glycopyrrolate 0.2mg/ml 1ml Vial ONE (07:00)
[2017-09-19] MEDS ORDERED: NS 500ML ONE (07:00)
[2017-09-19] MEDS ORDERED: Ketamine 500mg Inj ONE (07:00)
[2017-09-19] MEDS ORDERED: Succinylcholine 20mg/ml 10ml vial ONE (07:00)
[2017-09-19] MEDS ORDERED: Sodium Chloride 500ML 500 ML IV ONE (07:30)
[2017-09-19] MEDS ORDERED: Heplock Flush 100 units/ml 3 ml syr INJ ONE (07:30)
[2017-09-19 08:26] VITALS: BP 157/87
[2017-09-19 08:40] VITALS: BP 166/94
[2017-09-19 08:45] VITALS: BP 176/88
[2017-09-19 08:50] VITALS: BP 176/88
[2017-09-19 08:55] VITALS: BP 156/75
[2017-09-26] MEDS ORDERED: Sodium Chloride 500ML 500 ML IV ONE (07:20)
[2017-09-26 07:47] VITALS: BP 146/86
[2017-09-26 08:00] VITALS: BP 166/110
[2017-09-26 08:05] VITALS: BP 179/84
[2017-09-26 08:10] VITALS: BP 169/83
[2017-09-26 08:15] VITALS: BP 164/75
[2017-09-26] MEDS ORDERED: Heplock Flush 100 units/ml 3 ml syr IV ONE (10:45)
== END 2017-10-01 | disposition home or self-care (01) ==
LOC: ECT 05:35
DX: F31.63 Bipolar disorder, current episode mixed, severe, without psychotic features (principal)
CPT/HCPCS: 90870; J0330; J1642; J3360; J3490; J7040

== ENCOUNTER 2017-10-10 04:51 | Outpatient (RCR) | payer OTHER ==
[~2017-10-10] VITALS: Ht 167.6 cm; Wt 95.3 kg
[2017-10-10] MEDS ORDERED: Ketamine 500mg Inj ONE (04:52)
[2017-10-10] MEDS ORDERED: NS 500ML ONE (04:52)
[2017-10-10] MEDS ORDERED: Glycopyrrolate 0.2mg/ml 1ml Vial ONE (04:52)
[2017-10-10] MEDS ORDERED: Succinylcholine 20mg/ml 10ml vial ONE (04:52)
[2017-10-10] MEDS ORDERED: Heplock Flush 100 units/ml 3 ml syr INJ ONE (07:20)
[2017-10-10] MEDS ORDERED: Sodium Chloride 500ML 500 ML IV ONE (07:20)
[2017-10-10 07:36] VITALS: BP 143/70
[2017-10-10 07:55] VITALS: BP 163/78
[2017-10-10 08:00] VITALS: BP 151/79
[2017-10-10 08:05] VITALS: BP 152/65
[2017-10-10 08:10] VITALS: BP 152/63
[2017-10-20] MEDS ORDERED: Ketamine HCl 100mg syr ONE (06:00)
[2017-10-20] MEDS ORDERED: Succinylcholine 20mg/ml 10ml vial ONE (06:00)
[2017-10-20] MEDS ORDERED: NS 500ML ONE (06:00)
[2017-10-20] MEDS ORDERED: Glycopyrrolate 0.2mg/ml 1ml Vial ONE (06:00)
[2017-10-20] MEDS ORDERED: Sodium Chloride 500ML 500 ML IV ONE (09:51)
[2017-10-20] MEDS ORDERED: Heplock Flush 100 units/ml 3 ml syr IV ONE (09:56)
[2017-10-20 10:03] VITALS: BP 154/73
[2017-10-20 10:20] VITALS: BP 162/93
[2017-10-20 10:25] VITALS: BP 191/85
[2017-10-20 10:30] VITALS: BP 173/80
[2017-10-20 10:35] VITALS: BP 155/81
[2017-10-24] MEDS ORDERED: Sodium Chloride 500ML 500 ML IV ONE (07:20)
[2017-10-24 07:43] VITALS: BP 147/84
[2017-10-24 08:00] VITALS: BP 207/81
[2017-10-24] MEDS ORDERED: NS 500ML ONE (08:00)
[2017-10-24] MEDS ORDERED: Ketamine 500mg Inj ONE (08:00)
[2017-10-24] MEDS ORDERED: Succinylcholine 20mg/ml 10ml vial ONE (08:00)
[2017-10-24] MEDS ORDERED: Glycopyrrolate 0.2mg/ml 1ml Vial ONE (08:00)
[2017-10-24 08:05] VITALS: BP 175/78
[2017-10-24 08:10] VITALS: BP 166/73
[2017-10-24 08:15] VITALS: BP 159/70
[2017-10-28] MEDS ORDERED: Heplock Flush 100 units/ml 3 ml syr IV ONE (07:20)
[2017-10-29] MEDS ORDERED: Ketamine 500mg Inj ONE (08:00)
[2017-10-29] MEDS ORDERED: Glycopyrrolate 0.2mg/ml 1ml Vial ONE (08:00)
[2017-10-29] MEDS ORDERED: Succinylcholine 20mg/ml 10ml vial ONE (08:00)
[2017-10-29] MEDS ORDERED: NS 500ML ONE (08:00)
[2017-10-29 08:06] VITALS: BP 146/89
[2017-10-29] MEDS ORDERED: Sodium Chloride 500ML 500 ML IV ONE (08:24)
[2017-10-29] MEDS ORDERED: Heplock Flush 100 units/ml 3 ml syr INJ ONE (08:24)
[2017-10-29 08:25] VITALS: BP 183/79
[2017-10-29 08:30] VITALS: BP 174/71
[2017-10-29 08:35] VITALS: BP 167/64
[2017-10-29 08:40] VITALS: BP 167/64
== END 2017-11-01 | disposition home or self-care (01) ==
LOC: ECT 04:51
DX: F31.63 Bipolar disorder, current episode mixed, severe, without psychotic features (principal)
CPT/HCPCS: 90870; J0330; J1642; J3360; J3490; J7040

== ENCOUNTER 2017-11-05 07:42 | Outpatient (RCR) | payer OTHER ==
[~2017-11-05] VITALS: Ht 167.6 cm; Wt 95.3 kg
[~2017-11-05 07:42] MED LIST changes: -Glycopyrrolate 0.2mg/ml 1ml Vial ONE; -Heplock Flush 100 units/ml 3 ml syr IV ONE; +Heplock Flush 100 units/ml 3 ml syr ONE; -Ketamine 500mg Inj ONE; -Sodium Chloride 500ML 500 ML IV ONE
[2017-11-05] MEDS ORDERED: NS 500ML ONE (07:43)
[2017-11-05] MEDS ORDERED: Glycopyrrolate 0.2mg/ml 1ml Vial ONE (07:43)
[2017-11-05] MEDS ORDERED: Ketamine 500mg Inj ONE (07:43)
[2017-11-05] MEDS ORDERED: Succinylcholine 20mg/ml 10ml vial ONE (07:43)
[2017-11-05] MEDS ORDERED: Heplock Flush 100 units/ml 3 ml syr IV ONE ×2 (08:00→08:44)
[2017-11-05 08:27] VITALS: BP 142/88
[2017-11-05] MEDS ORDERED: Sodium Chloride 500ML 500 ML IV ONE (08:44)
[2017-11-05 08:45] VITALS: BP 178/84
[2017-11-05 08:50] VITALS: BP 160/78
[2017-11-05 08:55] VITALS: BP 162/74
[2017-11-05 09:00] VITALS: BP 158/71
[2017-11-05 09:05] VITALS: BP 154/69
[2017-11-14] MEDS ORDERED: Succinylcholine 20mg/ml 10ml vial ONE (07:00)
[2017-11-14] MEDS ORDERED: Glycopyrrolate 0.2mg/ml 1ml Vial ONE (07:00)
[2017-11-14] MEDS ORDERED: Ketamine 500mg Inj ONE (07:00)
[2017-11-14] MEDS ORDERED: NS 500ML ONE (07:00)
[2017-11-14] MEDS ORDERED: Sodium Chloride 500ML 500 ML IV ONE (07:15)
[2017-11-14] MEDS ORDERED: Heplock Flush 100 units/ml 3 ml syr INJ ONE (07:15)
[2017-11-14 07:42] VITALS: BP 148/73
[2017-11-14 08:00] VITALS: BP 197/91
[2017-11-14 08:05] VITALS: BP 194/82
[2017-11-14 08:10] VITALS: BP 181/91
[2017-11-14 08:15] VITALS: BP 172/78
[2017-11-28] MEDS ORDERED: NS 500ML ONE (07:00)
[2017-11-28] MEDS ORDERED: Ketamine 500mg Inj ONE (07:00)
[2017-11-28] MEDS ORDERED: Glycopyrrolate 0.2mg/ml 1ml Vial ONE (07:00)
[2017-11-28] MEDS ORDERED: Succinylcholine 20mg/ml 10ml vial ONE (07:00)
[2017-11-28] MEDS ORDERED: Heplock Flush 100 units/ml 3 ml syr INJ ONE (07:10)
[2017-11-28] MEDS ORDERED: Sodium Chloride 500ML 500 ML IV ONE (07:10)
[2017-11-28 07:40] VITALS: BP 131/81
[2017-11-28 08:00] VITALS: BP 202/94
[2017-11-28 08:05] VITALS: BP 184/84
[2017-11-28 08:10] VITALS: BP 179/84
[2017-11-28 08:15] VITALS: BP 155/75
[2017-11-28 08:20] VITALS: BP 144/77
== END 2017-12-01 | disposition home or self-care (01) ==
LOC: ECT 07:42
DX: F31.63 Bipolar disorder, current episode mixed, severe, without psychotic features (principal)
CPT/HCPCS: 90870; J0330; J1642; J3360; J3490; J7040

== ENCOUNTER 2017-12-19 09:31 | Outpatient (RCR) | payer OTHER ==
[~2017-12-19] VITALS: Ht 167.6 cm; Wt 95.3 kg
[2017-12-19 07:34] VITALS: BP 136/84
[2017-12-19 07:55] VITALS: BP 156/81
[2017-12-19 08:00] VITALS: BP 167/76
[2017-12-19 08:05] VITALS: BP 166/79
[2017-12-19 08:10] VITALS: BP 159/72
[~2017-12-19 09:31] MED LIST changes: +Heplock Flush 100 units/ml 3 ml syr IV ONE; -Heplock Flush 100 units/ml 3 ml syr ONE; +Sodium Chloride 500ML 500 ML IV ONE
[2017-12-19] MEDS ORDERED: Glycopyrrolate 0.2mg/ml 1ml Vial ONE (09:32)
[2017-12-19] MEDS ORDERED: Succinylcholine 20mg/ml 10ml vial ONE (09:32)
[2017-12-19] MEDS ORDERED: NS 500ML ONE (09:32)
[2017-12-19] MEDS ORDERED: Ketamine 500mg Inj ONE (09:32)
== END 2018-01-01 | disposition home or self-care (01) ==
LOC: ECT 09:31
DX: F31.63 Bipolar disorder, current episode mixed, severe, without psychotic features (principal)
CPT/HCPCS: 90870; J0330; J1642; J3360; J3490; J7040

== ENCOUNTER 2018-01-16 04:47 | Outpatient (RCR) | payer OTHER ==
[~2018-01-16] VITALS: Ht 167.6 cm; Wt 95.3 kg
[2018-01-16] MEDS ORDERED: Ketamine 500mg Inj ONE (07:00)
[2018-01-16] MEDS ORDERED: Succinylcholine 20mg/ml 10ml vial ONE (07:00)
[2018-01-16] MEDS ORDERED: Glycopyrrolate 0.2mg/ml 1ml Vial ONE (07:00)
[2018-01-16] MEDS ORDERED: NS 500ML ONE (07:00)
[2018-01-16] MEDS ORDERED: Heplock Flush 100 units/ml 3 ml syr IV SCH (07:00)
[2018-01-16 07:32] VITALS: BP 144/80
[2018-01-16] MEDS ORDERED: Sodium Chloride 500ML 500 ML IV ONE (07:58)
[2018-01-16] MEDS ORDERED: Atropine Sulfate 0.4mg/ml inj IVP PRN (07:58)
[2018-01-16 08:00] VITALS: BP 155/79
[2018-01-16 08:05] VITALS: BP 153/76
[2018-01-16 08:10] VITALS: BP 141/69
[2018-01-16 08:15] VITALS: BP 142/75
== END 2018-01-31 | disposition home or self-care (01) ==
LOC: ECT 04:47
DX: F31.63 Bipolar disorder, current episode mixed, severe, without psychotic features (principal)
CPT/HCPCS: 90870; J0330; J1642; J3360; J3490; J7040

== ENCOUNTER 2018-02-13 04:45 | Outpatient (RCR) | payer OTHER ==
[~2018-02-13] VITALS: Ht 33 cm; Wt 0.5 kg
[2018-02-16] MEDS ORDERED: Sodium Chloride 500ML 500 ML IV ONE (07:25)
[2018-02-16] MEDS ORDERED: Heplock Flush 100 units/ml 3 ml syr INJ ONE (07:25)
[2018-02-16 07:39] VITALS: BP 136/73
[2018-02-16 07:55] VITALS: BP 196/109
[2018-02-16 08:00] VITALS: BP 177/85
[2018-02-16] MEDS ORDERED: Ketamine 500mg Inj ONE (08:00)
[2018-02-16] MEDS ORDERED: NS 500ML ONE (08:00)
[2018-02-16] MEDS ORDERED: Glycopyrrolate 0.2mg/ml 1ml Vial ONE (08:00)
[2018-02-16] MEDS ORDERED: Succinylcholine 20mg/ml 10ml vial ONE (08:00)
[2018-02-16 08:05] VITALS: BP 175/83
[2018-02-16 08:10] VITALS: BP 175/83
[2018-02-16 08:15] VITALS: BP 174/78
== END 2018-03-03 | disposition home or self-care (01) ==
LOC: ECT 04:45
DX: F31.63 Bipolar disorder, current episode mixed, severe, without psychotic features (principal)
CPT/HCPCS: 90870; J0330; J3360; J3490; J7040

== ENCOUNTER 2018-03-13 04:39 | Outpatient (RCR) | payer OTHER ==
[~2018-03-13] VITALS: Ht 167.6 cm; Wt 95.3 kg
[2018-03-13] MEDS ORDERED: Succinylcholine 20mg/ml 10ml vial ONE (04:40)
[2018-03-13] MEDS ORDERED: NS 500ML ONE (04:40)
[2018-03-13] MEDS ORDERED: Glycopyrrolate 0.2mg/ml 1ml Vial ONE (04:40)
[2018-03-13] MEDS ORDERED: Ketamine 500mg Inj ONE (04:40)
[2018-03-13] MEDS ORDERED: Sodium Chloride 500ML 500 ML IV ONE (07:00)
[2018-03-13] MEDS ORDERED: Heplock Flush 100 units/ml 3 ml syr INJ ONE (07:00)
[2018-03-13] MEDS ORDERED: Heplock Flush 100 units/ml 3 ml syr IV SCH (07:30)
[2018-03-13 07:36] VITALS: BP 139/83
[2018-03-13 08:05] VITALS: BP 166/88
[2018-03-13 08:10] VITALS: BP 162/81
[2018-03-13 08:15] VITALS: BP 160/74
[2018-03-13 08:20] VITALS: BP 154/72
[2018-04-01] MEDS ORDERED: Glycopyrrolate 0.2mg/ml 1ml Vial ONE (06:00)
[2018-04-01] MEDS ORDERED: NS 500ML ONE (06:00)
[2018-04-01] MEDS ORDERED: Succinylcholine 20mg/ml 10ml vial ONE (06:00)
[2018-04-01] MEDS ORDERED: Ketamine 500mg Inj ONE (06:00)
[2018-04-01] MEDS ORDERED: Heplock Flush 100 units/ml 3 ml syr IV ONE (08:20)
[2018-04-01] MEDS ORDERED: Heplock Flush 100 units/ml 3 ml syr ONE (08:20)
[2018-04-01] MEDS ORDERED: Sodium Chloride 500ML 500 ML IV ONE (10:30)
[2018-04-01 11:10] VITALS: BP 197/92
[2018-04-01 11:15] VITALS: BP 175/92
[2018-04-01 11:20] VITALS: BP 162/77
[2018-04-01 11:25] VITALS: BP 151/72
[2018-04-01 11:30] VITALS: BP 152/79
== END 2018-04-03 | disposition home or self-care (01) ==
LOC: ECT 04:39
DX: F31.63 Bipolar disorder, current episode mixed, severe, without psychotic features (principal)
CPT/HCPCS: 90870; J0330; J1642; J3360; J3490; J7040

== ENCOUNTER 2018-04-10 04:18 | Outpatient (RCR) | payer MEDICARE, OTHER ==
[~2018-04-10] VITALS: Ht 167.6 cm; Wt 95.3 kg
[2018-04-10] MEDS ORDERED: NS 500ML ONE (04:19)
[2018-04-10] MEDS ORDERED: Succinylcholine 20mg/ml 10ml vial ONE (04:19)
[2018-04-10] MEDS ORDERED: Ketamine 500mg Inj ONE (04:19)
[2018-04-10] MEDS ORDERED: Glycopyrrolate 0.2mg/ml 1ml Vial ONE (04:19)
[2018-04-10 07:29] VITALS: BP 127/78
[2018-04-10] MEDS ORDERED: Sodium Chloride 500ML 500 ML IV ONE (07:43)
[2018-04-10] MEDS ORDERED: Heplock Flush 100 units/ml 3 ml syr INJ ONE (07:43)
[2018-04-10 07:45] VITALS: BP 179/87
[2018-04-10 07:50] VITALS: BP 166/76
[2018-04-10 07:55] VITALS: BP 166/76
[2018-04-10 08:00] VITALS: BP 143/70
[2018-04-24] MEDS ORDERED: Succinylcholine 20mg/ml 10ml vial ONE (07:00)
[2018-04-24] MEDS ORDERED: NS 500ML ONE (07:00)
[2018-04-24] MEDS ORDERED: Glycopyrrolate 0.2mg/ml 1ml Vial ONE (07:00)
[2018-04-24] MEDS ORDERED: Ketamine 500mg Inj ONE (07:00)
[2018-04-24] MEDS ORDERED: Sodium Chloride 500ML 500 ML IV ONE (07:25)
[2018-04-24] MEDS ORDERED: Heplock Flush 100 units/ml 3 ml syr INJ PRN (07:25)
[2018-04-24 07:39] VITALS: BP 195/75
[2018-04-24 07:55] VITALS: BP 166/69
[2018-04-24 08:00] VITALS: BP 169/69
[2018-04-24 08:05] VITALS: BP 164/66
[2018-04-24 08:10] VITALS: BP 156/86
[2018-04-24] MEDS ORDERED: Heplock Flush 100 units/ml 3 ml syr IV SCH (11:00)
== END 2018-05-03 | disposition home or self-care (01) ==
LOC: ECT 04:18
DX: F31.63 Bipolar disorder, current episode mixed, severe, without psychotic features (principal)
CPT/HCPCS: 90870; J0330; J1642; J3360; J3490; J7040

== ENCOUNTER 2018-05-08 05:38 | Outpatient (RCR) | payer OTHER ==
[~2018-05-08] VITALS: Ht 30.5 cm; Wt 0.5 kg
[2018-05-08] MEDS ORDERED: Ketamine 500mg Inj ONE ×2 (05:39)
[2018-05-08] MEDS ORDERED: Succinylcholine 20mg/ml 10ml vial ONE ×2 (05:39)
[2018-05-08] MEDS ORDERED: Glycopyrrolate 0.2mg/ml 1ml Vial ONE ×2 (05:39)
[2018-05-08] MEDS ORDERED: NS 500ML ONE ×2 (05:39)
[2018-05-08] MEDS ORDERED: Heplock Flush 100 units/ml 3 ml syr INJ ONE (07:15)
[2018-05-08] MEDS ORDERED: Sodium Chloride 500ML 500 ML IV ONE (07:15)
[2018-05-08 07:41] VITALS: BP 141/86
[2018-05-08 07:55] VITALS: BP 189/88
[2018-05-08 08:00] VITALS: BP 179/88
[2018-05-08 08:05] VITALS: BP 174/75
[2018-05-08 08:10] VITALS: BP 152/76
[2018-05-15 07:42] VITALS: BP 162/94
[2018-05-15] MEDS ORDERED: Sodium Chloride 500ML 500 ML IV ONE (07:55)
[2018-05-15] MEDS ORDERED: Heplock Flush 100 units/ml 3 ml syr INJ ONE (07:55)
[2018-05-15 08:00] VITALS: BP 189/100
[2018-05-15] MEDS ORDERED: Succinylcholine 20mg/ml 10ml vial ONE (08:00)
[2018-05-15] MEDS ORDERED: NS 500ML ONE (08:00)
[2018-05-15] MEDS ORDERED: Glycopyrrolate 0.2mg/ml 1ml Vial ONE (08:00)
[2018-05-15] MEDS ORDERED: Ketamine 500mg Inj ONE (08:00)
[2018-05-15 08:05] VITALS: BP 181/86
[2018-05-15 08:10] VITALS: BP 180/81
[2018-05-15 08:15] VITALS: BP 164/81
[2018-05-29] MEDS ORDERED: Sodium Chloride 500ML 500 ML IV ONE (07:10)
[2018-05-29] MEDS ORDERED: Heplock Flush 100 units/ml 3 ml syr INJ ONE (07:10)
[2018-05-29 07:44] VITALS: BP 163/89
[2018-05-29 07:55] VITALS: BP 180/87
[2018-05-29 08:00] VITALS: BP 168/85
[2018-05-29 08:05] VITALS: BP 163/81
[2018-05-29 08:10] VITALS: BP 164/83
== END 2018-06-03 | disposition home or self-care (01) ==
LOC: ECT 05:38
DX: F31.63 Bipolar disorder, current episode mixed, severe, without psychotic features (principal)
CPT/HCPCS: 90870; J0330; J1642; J3360; J3490; J7040

== ENCOUNTER 2018-06-19 04:34 | Outpatient (RCR) | payer OTHER ==
[~2018-06-19] VITALS: Ht 30.5 cm; Wt 0.5 kg
[2018-06-19] MEDS ORDERED: Succinylcholine 20mg/ml 10ml vial ONE (04:35)
[2018-06-19] MEDS ORDERED: NS 500ML ONE (04:35)
[2018-06-19] MEDS ORDERED: Glycopyrrolate 0.2mg/ml 1ml Vial ONE (04:35)
[2018-06-19] MEDS ORDERED: Ketamine 500mg Inj ONE (04:35)
[2018-06-19] MEDS ORDERED: Heplock Flush 100 units/ml 3 ml syr INJ ONE (07:35)
[2018-06-19] MEDS ORDERED: Sodium Chloride 500ML 500 ML IV ONE (07:35)
[2018-06-19] MEDS ORDERED: Heplock Flush 100 units/ml 3 ml syr IV SCH (08:00)
[2018-06-19 08:13] VITALS: BP 146/82
[2018-06-19 08:30] VITALS: BP 196/93
[2018-06-19 08:35] VITALS: BP 200/86
[2018-06-19 08:40] VITALS: BP 166/74
[2018-06-19 08:45] VITALS: BP 166/74
== END 2018-07-03 | disposition home or self-care (01) ==
LOC: ECT 04:34
DX: F31.63 Bipolar disorder, current episode mixed, severe, without psychotic features (principal)
CPT/HCPCS: 90870; J0330; J1642; J3360; J3490; J7040

== ENCOUNTER 2018-07-15 06:50 | Outpatient (RCR) | payer OTHER ==
[~2018-07-15] VITALS: Ht 167.6 cm; Wt 95.3 kg
[2018-07-15] MEDS ORDERED: Succinylcholine 20mg/ml 10ml vial ONE (06:51)
[2018-07-15] MEDS ORDERED: Ketamine 500mg Inj ONE (06:51)
[2018-07-15] MEDS ORDERED: NS 500ML ONE (06:51)
[2018-07-15] MEDS ORDERED: Glycopyrrolate 0.2mg/ml 1ml Vial ONE (06:51)
[2018-07-15] MEDS ORDERED: Heplock Flush 100 units/ml 3 ml syr INJ ONE (07:40)
[2018-07-15] MEDS ORDERED: Sodium Chloride 500ML 500 ML IV ONE (07:40)
[2018-07-15] MEDS ORDERED: Heplock Flush 100 units/ml 3 ml syr ONE (07:40)
[2018-07-15 08:12] VITALS: BP 127/69
[2018-07-15 08:30] VITALS: BP 165/81
[2018-07-15 08:35] VITALS: BP 163/70
[2018-07-15 08:40] VITALS: BP 153/65
[2018-07-15 08:45] VITALS: BP 151/61
== END 2018-08-03 | disposition home or self-care (01) ==
LOC: ECT 06:50
DX: F31.63 Bipolar disorder, current episode mixed, severe, without psychotic features (principal)
CPT/HCPCS: 90870; J0330; J1642; J3360; J3490; J7040

== ENCOUNTER 2018-08-12 04:44 | Outpatient (RCR) | payer MEDICARE, OTHER ==
[~2018-08-12] VITALS: Ht 167.6 cm; Wt 95.3 kg
[2018-08-12] MEDS ORDERED: Ketamine 500mg Inj ONE (04:45)
[2018-08-12] MEDS ORDERED: Succinylcholine 20mg/ml 10ml vial ONE (04:45)
[2018-08-12] MEDS ORDERED: Glycopyrrolate 0.2mg/ml 1ml Vial ONE (04:45)
[2018-08-12] MEDS ORDERED: NS 500ML ONE (04:45)
[2018-08-12] MEDS ORDERED: Heplock Flush 100 units/ml 3 ml syr INJ ONE (07:45)
[2018-08-12 08:22] VITALS: BP 133/71
[2018-08-12 08:35] VITALS: BP 184/79
[2018-08-12 08:40] VITALS: BP 162/71
[2018-08-12 08:45] VITALS: BP 163/73
[2018-08-12 08:46] VITALS: BP 156/68
[2018-09-02] MEDS ORDERED: Heplock Flush 100 units/ml 3 ml syr INJ ONE ×2 (07:57)
[2018-09-02] MEDS ORDERED: Glycopyrrolate 0.2mg/ml 1ml Vial ONE (08:00)
[2018-09-02] MEDS ORDERED: Ketamine 500mg Inj ONE (08:00)
[2018-09-02] MEDS ORDERED: Succinylcholine 20mg/ml 10ml vial ONE (08:00)
[2018-09-02] MEDS ORDERED: NS 500ML ONE (08:00)
[2018-09-02 08:07] VITALS: BP 147/80
[2018-09-02 08:30] VITALS: BP 167/98
[2018-09-02 08:35] VITALS: BP 183/70
[2018-09-02 08:40] VITALS: BP 171/76
[2018-09-02 08:45] VITALS: BP 173/71
== END 2018-09-03 | disposition home or self-care (01) ==
LOC: ECT 04:44
DX: F31.63 Bipolar disorder, current episode mixed, severe, without psychotic features (principal); F60.9 Personality disorder, unspecified; M79.7 Fibromyalgia; M26.609 Unspecified temporomandibular joint disorder, unspecified side
CPT/HCPCS: 90870; J0330; J3360; J3490; J7040

== ENCOUNTER 2018-10-02 04:42 | Outpatient (RCR) | payer OTHER ==
[~2018-10-02] VITALS: Ht 30.5 cm; Wt 0.9 kg
[2018-10-02] MEDS ORDERED: Ibuprofen Susp 100mg/5ml ONE (04:43)
[2018-10-02] MEDS ORDERED: Succinylcholine 20mg/ml 10ml vial ONE (04:43)
[2018-10-02] MEDS ORDERED: Glycopyrrolate 0.2mg/ml 1ml Vial ONE (04:43)
[2018-10-02] MEDS ORDERED: Hydrogen Peroxide 473ml Bottle TOPIC ONE (04:43)
[2018-10-02] MEDS ORDERED: Heplock Flush 100 units/ml 3 ml syr IV SCH (07:30)
[2018-10-02 07:53] VITALS: BP 151/86
[2018-10-02 08:05] VITALS: BP 193/89
[2018-10-02 08:10] VITALS: BP 188/93
[2018-10-02 08:15] VITALS: BP 175/84
[2018-10-02 08:20] VITALS: BP 172/78
== END 2018-11-01 | disposition home or self-care (01) ==
LOC: ECT 04:42
DX: F31.63 Bipolar disorder, current episode mixed, severe, without psychotic features (principal)
CPT/HCPCS: 90870; J0330; J1642; J3360

== ENCOUNTER 2018-11-13 04:46 | Outpatient (RCR) | payer OTHER ==
[~2018-11-13] VITALS: Ht 30.5 cm; Wt 0.5 kg
[2018-11-13] MEDS ORDERED: Ketamine 500mg Inj ONE (04:47)
[2018-11-13] MEDS ORDERED: NS 500ML ONE (04:47)
[2018-11-13] MEDS ORDERED: Glycopyrrolate 0.2mg/ml 1ml Vial ONE (04:47)
[2018-11-13] MEDS ORDERED: Succinylcholine 20mg/ml 10ml vial ONE (04:47)
[2018-11-13] MEDS ORDERED: Heplock Flush 100 units/ml 3 ml syr INJ ONE (07:30)
[2018-11-13 08:12] VITALS: BP 179/89
[2018-11-13 08:25] VITALS: BP 167/107
[2018-11-13 08:30] VITALS: BP 189/96
[2018-11-13 08:35] VITALS: BP 167/90
[2018-11-13 08:40] VITALS: BP 176/86
== END 2018-12-01 | disposition home or self-care (01) ==
LOC: ECT 04:46
DX: F31.63 Bipolar disorder, current episode mixed, severe, without psychotic features (principal)
CPT/HCPCS: 90870; J0330; J3360; J3490; J7040

== ENCOUNTER 2018-12-04 04:27 | Outpatient (RCR) | payer OTHER ==
[~2018-12-04] VITALS: Ht 167.6 cm; Wt 95.3 kg
[2018-12-04] MEDS ORDERED: Ketamine 500mg Inj ONE ×2 (04:28)
[2018-12-04] MEDS ORDERED: NS 500ML ONE ×2 (04:28)
[2018-12-04] MEDS ORDERED: Glycopyrrolate 0.2mg/ml 1ml Vial ONE ×2 (04:28)
[2018-12-04] MEDS ORDERED: Succinylcholine 20mg/ml 10ml vial ONE ×2 (04:28)
[2018-12-04] MEDS ORDERED: Heplock Flush 100 units/ml 3 ml syr INJ ONE (08:45)
[2018-12-04 09:15] VITALS: BP 162/80
[2018-12-04 09:34] VITALS: BP 189/79
[2018-12-04 09:39] VITALS: BP 188/74
[2018-12-04 09:44] VITALS: BP 183/68
[2018-12-04 09:49] VITALS: BP 180/63
[2018-12-11] MEDS ORDERED: NS 500ML ONE (07:00)
[2018-12-11] MEDS ORDERED: Ketamine 500mg Inj ONE (07:00)
[2018-12-11] MEDS ORDERED: Glycopyrrolate 0.2mg/ml 1ml Vial ONE (07:00)
[2018-12-11] MEDS ORDERED: Succinylcholine 20mg/ml 10ml vial ONE (07:00)
[2018-12-11] MEDS ORDERED: Heplock Flush 100 units/ml 3 ml syr INJ ONE (07:35)
[2018-12-11 08:14] VITALS: BP 155/84
[2018-12-11 08:26] VITALS: BP 199/95
[2018-12-11 08:31] VITALS: BP 191/89
[2018-12-11 08:36] VITALS: BP 176/88
[2018-12-11 08:41] VITALS: BP 179/82
[2018-12-18] MEDS ORDERED: Heplock Flush 100 units/ml 3 ml syr INJ ONE (07:30)
[2018-12-18] MEDS ORDERED: Succinylcholine 20mg/ml 10ml vial ONE (08:00)
[2018-12-18] MEDS ORDERED: Ketamine 500mg Inj ONE (08:00)
[2018-12-18] MEDS ORDERED: Glycopyrrolate 0.2mg/ml 1ml Vial ONE (08:00)
[2018-12-18] MEDS ORDERED: NS 500ML ONE (08:00)
[2018-12-18 08:19] VITALS: BP 164/89
[2018-12-18 08:31] VITALS: BP 199/98
[2018-12-18 08:36] VITALS: BP 198/96
[2018-12-18 08:41] VITALS: BP 166/77
[2018-12-18 08:46] VITALS: BP 168/73
[2018-12-25] MEDS ORDERED: Heplock Flush 100 units/ml 3 ml syr INJ ONE (07:35)
[2018-12-25 08:12] VITALS: BP 152/85
[2018-12-25 08:30] VITALS: BP 198/97
[2018-12-25 08:35] VITALS: BP 184/90
[2018-12-25 08:40] VITALS: BP 183/76
[2018-12-25 08:45] VITALS: BP 173/76
[2018-12-30] MEDS ORDERED: Heplock Flush 100 units/ml 3 ml syr INJ ONE (07:30)
[2018-12-30 08:05] VITALS: BP 143/80
[2018-12-30 08:15] VITALS: BP 168/104
[2018-12-30 08:20] VITALS: BP 192/72
[2018-12-30 08:25] VITALS: BP 172/75
[2018-12-30 08:30] VITALS: BP 177/74
[2018-12-30] MEDS ORDERED: Ketamine 500mg Inj ONE (09:00)
[2018-12-30] MEDS ORDERED: Glycopyrrolate 0.2mg/ml 1ml Vial ONE (09:00)
[2018-12-30] MEDS ORDERED: NS 500ML ONE (09:00)
[2018-12-30] MEDS ORDERED: Succinylcholine 20mg/ml 10ml vial ONE (09:00)
[2019-01-01] MEDS ORDERED: Heplock Flush 100 units/ml 3 ml syr INJ ONE (07:20)
[2019-01-01] MEDS ORDERED: Ketamine 500mg Inj ONE (08:00)
[2019-01-01] MEDS ORDERED: NS 500ML ONE (08:00)
[2019-01-01] MEDS ORDERED: Succinylcholine 20mg/ml 10ml vial ONE (08:00)
[2019-01-01] MEDS ORDERED: Glycopyrrolate 0.2mg/ml 1ml Vial ONE (08:00)
[2019-01-01 08:42] VITALS: BP 158/86
[2019-01-01 08:55] VITALS: BP 199/85
[2019-01-01 09:00] VITALS: BP 181/88
[2019-01-01 09:05] VITALS: BP 171/83
[2019-01-01 09:10] VITALS: BP 169/92
== END 2019-01-01 | disposition home or self-care (01) ==
LOC: ECT 04:27
DX: F31.63 Bipolar disorder, current episode mixed, severe, without psychotic features (principal)
CPT/HCPCS: 90870; J0330; J1642; J3360; J3490; J7040

== ENCOUNTER 2019-01-06 05:56 | Outpatient (RCR) | payer OTHER ==
[~2019-01-06] VITALS: Ht 167.6 cm; Wt 95.3 kg
[2019-01-06] MEDS ORDERED: NS 500ML ONE ×2 (05:57)
[2019-01-06] MEDS ORDERED: Succinylcholine 20mg/ml 10ml vial ONE ×2 (05:57)
[2019-01-06] MEDS ORDERED: Ketamine 500mg Inj ONE ×3 (05:57)
[2019-01-06] MEDS ORDERED: Glycopyrrolate 0.2mg/ml 1ml Vial ONE ×3 (05:57)
[2019-01-06] MEDS ORDERED: Heplock Flush 100 units/ml 3 ml syr INJ ONE (07:25)
[2019-01-06 08:03] VITALS: BP 137/83
[2019-01-06 08:19] VITALS: BP 196/85
[2019-01-06 08:24] VITALS: BP 173/81
[2019-01-06 08:29] VITALS: BP 157/77
[2019-01-06 08:34] VITALS: BP 153/75
[2019-01-08] MEDS ORDERED: Heplock Flush 100 units/ml 3 ml syr INJ ONE (07:30)
[2019-01-08 07:54] VITALS: BP 144/95
[2019-01-08 08:10] VITALS: BP 184/86
[2019-01-08 08:15] VITALS: BP 158/81
[2019-01-08 08:20] VITALS: BP 154/75
[2019-01-08 08:25] VITALS: BP 150/73
[2019-01-13] MEDS ORDERED: Heplock Flush 100 units/ml 3 ml syr INJ ONE (10:30)
[2019-01-13 11:06] VITALS: BP 153/94
[2019-01-13 11:18] VITALS: BP 202/98
[2019-01-13 11:23] VITALS: BP 190/98
[2019-01-13 11:28] VITALS: BP 178/93
[2019-01-13 11:33] VITALS: BP 164/91
[2019-01-20] MEDS ORDERED: Succinylcholine 20mg/ml 10ml vial ONE (06:00)
[2019-01-20] MEDS ORDERED: Ketamine 500mg Inj ONE (06:00)
[2019-01-20] MEDS ORDERED: Glycopyrrolate 0.2mg/ml 1ml Vial ONE (06:00)
[2019-01-20] MEDS ORDERED: Heplock Flush 100 units/ml 3 ml syr IV ONE (11:08)
[2019-01-20 11:24] VITALS: BP 164/90
[2019-01-20 11:37] VITALS: BP 195/81
[2019-01-20 11:42] VITALS: BP 191/79
[2019-01-20 11:47] VITALS: BP 171/76
[2019-01-20 11:52] VITALS: BP 168/76
[2019-01-22] MEDS ORDERED: Heplock Flush 100 units/ml 3 ml syr INJ ONE (06:45)
[2019-01-22] MEDS ORDERED: Ketamine 500mg Inj ONE (07:00)
[2019-01-22] MEDS ORDERED: Succinylcholine 20mg/ml 10ml vial ONE (07:00)
[2019-01-22] MEDS ORDERED: NS 500ML ONE (07:00)
[2019-01-22] MEDS ORDERED: Glycopyrrolate 0.2mg/ml 1ml Vial ONE (07:00)
[2019-01-22 07:09] VITALS: BP 167/97
[2019-01-22 07:20] VITALS: BP 204/85
[2019-01-22 07:25] VITALS: BP 191/90
[2019-01-22 07:30] VITALS: BP 171/82
[2019-01-22 07:35] VITALS: BP 169/80
[2019-01-25] MEDS ORDERED: Heplock Flush 100 units/ml 3 ml syr INJ ONE (07:30)
[2019-01-25 07:41] VITALS: BP 166/96
[2019-01-25 07:55] VITALS: BP 198/88
[2019-01-25 08:00] VITALS: BP 191/82
[2019-01-25 08:05] VITALS: BP 189/79
[2019-01-25 08:10] VITALS: BP 185/84
[2019-01-25] MEDS ORDERED: Glycopyrrolate 0.2mg/ml 1ml Vial ONE (09:00)
[2019-01-25] MEDS ORDERED: Ketamine 500mg Inj ONE (09:00)
[2019-01-25] MEDS ORDERED: NS 500ML ONE (09:00)
[2019-01-25] MEDS ORDERED: Succinylcholine 20mg/ml 10ml vial ONE (09:00)
[2019-01-29] MEDS ORDERED: Heplock Flush 100 units/ml 3 ml syr INJ ONE (07:30)
[2019-01-29] MEDS ORDERED: Succinylcholine 20mg/ml 10ml vial ONE (08:00)
[2019-01-29] MEDS ORDERED: Ketamine 500mg Inj ONE (08:00)
[2019-01-29] MEDS ORDERED: NS 500ML ONE (08:00)
[2019-01-29] MEDS ORDERED: Glycopyrrolate 0.2mg/ml 1ml Vial ONE (08:00)
[2019-01-29 08:33] VITALS: BP 150/87
[2019-01-29 08:45] VITALS: BP 182/83
[2019-01-29 08:50] VITALS: BP 180/80
[2019-01-29 08:55] VITALS: BP 170/71
[2019-01-29 09:00] VITALS: BP 167/76
== END 2019-01-31 | disposition home or self-care (01) ==
LOC: ECT 05:56
DX: F31.63 Bipolar disorder, current episode mixed, severe, without psychotic features (principal)
CPT/HCPCS: 90870; J0330; J1642; J3360; J3490; J7040

== ENCOUNTER 2019-02-03 06:37 | Outpatient (RCR) | payer OTHER ==
[~2019-02-03] VITALS: Ht 167.6 cm; Wt 95.3 kg
[2019-02-03] MEDS ORDERED: NS 500ML ONE ×3 (06:38)
[2019-02-03] MEDS ORDERED: Ketamine 500mg Inj ONE ×3 (06:38)
[2019-02-03] MEDS ORDERED: Succinylcholine 20mg/ml 10ml vial ONE ×3 (06:38)
[2019-02-03] MEDS ORDERED: Glycopyrrolate 0.2mg/ml 1ml Vial ONE ×3 (06:38)
[2019-02-03] MEDS ORDERED: Heplock Flush 100 units/ml 3 ml syr INJ ONE (08:40)
[2019-02-03 09:08] VITALS: BP 151/83
[2019-02-03 09:22] VITALS: BP 166/95
[2019-02-03 09:27] VITALS: BP 177/82
[2019-02-03 09:32] VITALS: BP 173/75
[2019-02-03 09:37] VITALS: BP 175/69
[2019-02-10] MEDS ORDERED: Succinylcholine 20mg/ml 10ml vial ONE (06:00)
[2019-02-10] MEDS ORDERED: Glycopyrrolate 0.2mg/ml 1ml Vial ONE (06:00)
[2019-02-10] MEDS ORDERED: NS 500ML ONE (06:00)
[2019-02-10] MEDS ORDERED: Ketamine 500mg Inj ONE (06:00)
[2019-02-10] MEDS ORDERED: Heplock Flush 100 units/ml 3 ml syr INJ ONE (09:10)
[2019-02-10 09:29] VITALS: BP 139/82
[2019-02-10 09:40] VITALS: BP 166/83
[2019-02-10 09:45] VITALS: BP 153/68
[2019-02-10 09:50] VITALS: BP 151/73
[2019-02-10 09:55] VITALS: BP 149/70
[2019-02-12] MEDS ORDERED: Heplock Flush 100 units/ml 3 ml syr INJ ONE (09:05)
[2019-02-12 09:37] VITALS: BP 150/96
[2019-02-12 09:48] VITALS: BP 167/91
[2019-02-12 09:53] VITALS: BP 190/93
[2019-02-12 09:58] VITALS: BP 184/76
[2019-02-12 10:03] VITALS: BP 180/83
[2019-02-15 07:09] VITALS: BP 147/83
[2019-02-15 07:25] VITALS: BP 167/96
[2019-02-15] MEDS ORDERED: Heplock Flush 100 units/ml 3 ml syr INJ ONE (07:25)
[2019-02-15 07:30] VITALS: BP 187/82
[2019-02-15 07:35] VITALS: BP 173/79
[2019-02-15 07:40] VITALS: BP 164/74
[2019-02-15] MEDS ORDERED: Ketamine 500mg Inj ONE (08:00)
[2019-02-15] MEDS ORDERED: Succinylcholine 20mg/ml 10ml vial ONE (08:00)
[2019-02-15] MEDS ORDERED: Glycopyrrolate 0.2mg/ml 1ml Vial ONE (08:00)
[2019-02-15] MEDS ORDERED: NS 500ML ONE (08:00)
[2019-02-17] MEDS ORDERED: Ketamine 500mg Inj ONE (06:00)
[2019-02-17] MEDS ORDERED: Succinylcholine 20mg/ml 10ml vial ONE (06:00)
[2019-02-17] MEDS ORDERED: NS 500ML ONE (06:00)
[2019-02-17] MEDS ORDERED: Glycopyrrolate 0.2mg/ml 1ml Vial ONE (06:00)
[2019-02-17] MEDS ORDERED: Heplock Flush 100 units/ml 3 ml syr INJ ONE (09:43)
[2019-02-17 09:58] VITALS: BP 157/89
[2019-02-17 10:12] VITALS: BP 200/74
[2019-02-17 10:17] VITALS: BP 164/80
[2019-02-17 10:22] VITALS: BP 161/78
[2019-02-17 10:27] VITALS: BP 158/77
[2019-02-19] MEDS ORDERED: Ketamine 500mg Inj ONE (06:00)
[2019-02-19] MEDS ORDERED: NS 500ML ONE (06:00)
[2019-02-19] MEDS ORDERED: Succinylcholine 20mg/ml 10ml vial ONE (06:00)
[2019-02-19] MEDS ORDERED: Glycopyrrolate 0.2mg/ml 1ml Vial ONE (06:00)
[2019-02-19] MEDS ORDERED: Heplock Flush 100 units/ml 3 ml syr INJ ONE (07:30)
[2019-02-19 08:00] VITALS: BP 154/86
[2019-02-19 08:13] VITALS: BP 184/84
[2019-02-19 08:18] VITALS: BP 192/79
[2019-02-19 08:23] VITALS: BP 183/71
[2019-02-19 08:28] VITALS: BP 170/73
[2019-02-22] MEDS ORDERED: Glycopyrrolate 0.2mg/ml 1ml Vial ONE (07:00)
[2019-02-22] MEDS ORDERED: Ketamine 500mg Inj ONE (07:00)
[2019-02-22] MEDS ORDERED: Succinylcholine 20mg/ml 10ml vial ONE (07:00)
[2019-02-22] MEDS ORDERED: NS 500ML ONE (07:00)
[2019-02-22] MEDS ORDERED: Heplock Flush 100 units/ml 3 ml syr INJ ONE (07:15)
[2019-02-22 07:46] VITALS: BP 161/89
[2019-02-22 07:56] VITALS: BP 208/89
[2019-02-22 08:01] VITALS: BP 192/81
[2019-02-22 08:06] VITALS: BP 186/86
[2019-02-22 08:11] VITALS: BP 178/77
[2019-02-26] MEDS ORDERED: Heplock Flush 100 units/ml 3 ml syr INJ ONE (07:25)
[2019-02-26 08:28] VITALS: BP 154/87
[2019-02-26 08:40] VITALS: BP 197/98
[2019-02-26 08:45] VITALS: BP 207/98
[2019-02-26 08:50] VITALS: BP 195/82
[2019-02-26 08:55] VITALS: BP 196/82
[2019-03-03] MEDS ORDERED: Succinylcholine 20mg/ml 10ml vial ONE (06:00)
[2019-03-03] MEDS ORDERED: Ketamine 500mg Inj ONE (06:00)
[2019-03-03] MEDS ORDERED: Glycopyrrolate 0.2mg/ml 1ml Vial ONE (06:00)
[2019-03-03] MEDS ORDERED: NS 500ML ONE (06:00)
[2019-03-03] MEDS ORDERED: Heplock Flush 100 units/ml 3 ml syr INJ ONE (07:25)
[2019-03-03 08:12] VITALS: BP 143/80
[2019-03-03 08:25] VITALS: BP 181/89
[2019-03-03 08:30] VITALS: BP 181/89
[2019-03-03 08:35] VITALS: BP 179/78
[2019-03-03 08:40] VITALS: BP 187/65
== END 2019-03-03 | disposition home or self-care (01) ==
LOC: ECT 06:37
DX: F31.63 Bipolar disorder, current episode mixed, severe, without psychotic features (principal)
CPT/HCPCS: 90870; J0330; J1642; J3360; J3490; J7040

== ENCOUNTER 2019-03-10 05:23 | Outpatient (RCR) | payer OTHER ==
[~2019-03-10] VITALS: Ht 167.6 cm; Wt 95.3 kg
[2019-03-10] MEDS ORDERED: NS 500ML ONE (06:00)
[2019-03-10] MEDS ORDERED: Succinylcholine 20mg/ml 10ml vial ONE (06:00)
[2019-03-10] MEDS ORDERED: Ketamine 500mg Inj ONE (06:00)
[2019-03-10] MEDS ORDERED: Glycopyrrolate 0.2mg/ml 1ml Vial ONE (06:00)
[2019-03-10] MEDS ORDERED: Heplock Flush 100 units/ml 3 ml syr INJ ONE (08:40)
[2019-03-10 09:12] VITALS: BP 153/85
[2019-03-10 09:25] VITALS: BP 166/106
[2019-03-10 09:30] VITALS: BP 184/82
[2019-03-10 09:35] VITALS: BP 176/74
[2019-03-10 09:40] VITALS: BP 168/82
[2019-03-19] MEDS ORDERED: Ketamine 500mg Inj ONE (06:00)
[2019-03-19] MEDS ORDERED: Glycopyrrolate 0.2mg/ml 1ml Vial ONE (06:00)
[2019-03-19] MEDS ORDERED: Succinylcholine 20mg/ml 10ml vial ONE (06:00)
[2019-03-19] MEDS ORDERED: NS 500ML ONE (06:00)
[2019-03-19] MEDS ORDERED: Heplock Flush 100 units/ml 3 ml syr INJ ONE (07:15)
[2019-03-19 07:51] VITALS: BP 169/98
[2019-03-19 08:05] VITALS: BP 187/86
[2019-03-19 08:10] VITALS: BP 179/80
[2019-03-19 08:15] VITALS: BP 163/86
[2019-03-19 08:20] VITALS: BP 165/77
[2019-04-02] MEDS ORDERED: Ketamine 500mg Inj ONE (06:00)
[2019-04-02] MEDS ORDERED: Succinylcholine 20mg/ml 10ml vial ONE (06:00)
[2019-04-02] MEDS ORDERED: Glycopyrrolate 0.2mg/ml 1ml Vial ONE (06:00)
[2019-04-02] MEDS ORDERED: NS 500ML ONE (06:00)
[2019-04-02] MEDS ORDERED: Heplock Flush 100 units/ml 3 ml syr INJ ONE (08:13)
[2019-04-02 08:24] VITALS: BP 155/102
[2019-04-02 08:40] VITALS: BP 182/88
[2019-04-02 08:45] VITALS: BP 166/82
[2019-04-02 08:50] VITALS: BP 159/80
[2019-04-02 08:55] VITALS: BP 163/84
== END 2019-04-03 | disposition home or self-care (01) ==
LOC: ECT 05:23
DX: F31.63 Bipolar disorder, current episode mixed, severe, without psychotic features (principal)
CPT/HCPCS: 90870; J0330; J3360; J3490; J7040

== ENCOUNTER 2019-04-23 04:37 | Outpatient (RCR) | payer OTHER ==
[~2019-04-23] VITALS: Ht 30.5 cm; Wt 0.5 kg
[2019-04-23] MEDS ORDERED: NS 500ML ONE (06:09)
[2019-04-23] MEDS ORDERED: Succinylcholine 20mg/ml 10ml vial ONE (06:09)
[2019-04-23] MEDS ORDERED: Glycopyrrolate 0.2mg/ml 1ml Vial ONE (06:09)
[2019-04-23] MEDS ORDERED: Ketamine 500mg Inj ONE (06:09)
[2019-04-23] MEDS ORDERED: Heplock Flush 100 units/ml 3 ml syr INJ ONE (07:35)
[2019-04-23 08:07] VITALS: BP 152/77
[2019-04-23 08:20] VITALS: BP 177/81
[2019-04-23 08:25] VITALS: BP 182/77
[2019-04-23 08:30] VITALS: BP 171/69
[2019-04-23 08:35] VITALS: BP 166/68
== END 2019-05-03 | disposition home or self-care (01) ==
LOC: ECT 04:37
DX: F31.63 Bipolar disorder, current episode mixed, severe, without psychotic features (principal); Z88.0 Allergy status to penicillin; Z88.8 Allergy status to other drugs, medicaments and biological substances
CPT/HCPCS: 90870; J0330; J1642; J3360; J3490; J7040

== ENCOUNTER 2019-05-14 07:07 | Outpatient (RCR) | payer MEDICARE, OTHER ==
[~2019-05-14] VITALS: Ht 30.5 cm; Wt 0.5 kg
[2019-05-14] MEDS ORDERED: NS 500ML ONE (07:08)
[2019-05-14] MEDS ORDERED: Succinylcholine 20mg/ml 10ml vial ONE (07:08)
[2019-05-14] MEDS ORDERED: Glycopyrrolate 0.2mg/ml 1ml Vial ONE (07:08)
[2019-05-14] MEDS ORDERED: Ketamine 500mg Inj ONE (07:08)
[2019-05-21 08:14] VITALS: BP 156/96
[2019-05-21] MEDS ORDERED: Heplock Flush 100 units/ml 3 ml syr INJ ONE (08:18)
[2019-05-21 08:20] VITALS: BP 186/89
[2019-05-21 08:25] VITALS: BP 178/93
[2019-05-21 08:30] VITALS: BP 171/86
[2019-05-21 08:35] VITALS: BP 152/80
== END 2019-06-03 | disposition home or self-care (01) ==
LOC: ECT 07:07
DX: F31.63 Bipolar disorder, current episode mixed, severe, without psychotic features (principal)
CPT/HCPCS: 90870; J0330; J1642; J3360; J3490; J7040

== ENCOUNTER 2019-06-18 04:21 | Outpatient (RCR) | payer MEDICARE, OTHER ==
[~2019-06-18] VITALS: Ht 30.5 cm; Wt 0.5 kg
[2019-06-18] MEDS ORDERED: Ketamine 500mg/10ml vial ONE ×2 (04:22)
[2019-06-18] MEDS ORDERED: Succinylcholine 20mg/ml 10ml vial ONE (04:22)
[2019-06-18] MEDS ORDERED: Glycopyrrolate 0.2mg/ml 1ml Vial ONE (04:22)
[2019-06-18] MEDS ORDERED: NS 500ML ONE (04:22)
[2019-06-18] MEDS ORDERED: Heplock Flush 100 units/ml 3 ml syr INJ ONE (07:35)
[2019-06-18 08:09] VITALS: BP 145/85
[2019-06-18 08:20] VITALS: BP 167/99
[2019-06-18 08:25] VITALS: BP 176/82
[2019-06-18 08:30] VITALS: BP 164/77
[2019-06-18 08:35] VITALS: BP 156/71
== END 2019-07-03 | disposition home or self-care (01) ==
LOC: ECT 04:21
DX: F31.63 Bipolar disorder, current episode mixed, severe, without psychotic features (principal)
CPT/HCPCS: 90870; J0330; J1642; J3360; J3490; J7040

== ENCOUNTER 2019-07-16 07:52 | Outpatient (RCR) | payer MEDICARE, OTHER ==
[~2019-07-16] VITALS: Ht 167.6 cm; Wt 95.3 kg
[2019-07-16] MEDS ORDERED: Succinylcholine 20mg/ml 10ml vial ONE (07:53)
[2019-07-16] MEDS ORDERED: Glycopyrrolate 0.2mg/ml 1ml Vial ONE (07:53)
[2019-07-16] MEDS ORDERED: Ketamine 500mg/10ml vial ONE (07:53)
[2019-07-16 08:12] VITALS: BP 166/88
[2019-07-16 08:25] VITALS: BP 196/90
[2019-07-16 08:30] VITALS: BP 197/86
[2019-07-16 08:35] VITALS: BP 182/95
[2019-07-16 08:40] VITALS: BP 179/83
[2019-07-16] MEDS ORDERED: Heplock Flush 100 units/ml 3 ml syr INJ ONE (08:45)
== END 2019-08-03 | disposition home or self-care (01) ==
LOC: ECT 07:52
DX: F31.63 Bipolar disorder, current episode mixed, severe, without psychotic features (principal)
CPT/HCPCS: 90870

== ENCOUNTER 2019-09-10 05:09 | Outpatient (RCR) | payer MEDICARE ==
[~2019-09-10] VITALS: Ht 167.6 cm; Wt 95.3 kg
[2019-09-10] MEDS ORDERED: NS 500ML ONE (06:00)
[2019-09-10] MEDS ORDERED: Succinylcholine 20mg/ml 10ml vial ONE (06:00)
[2019-09-10] MEDS ORDERED: Ketamine 500mg/10ml vial ONE (06:00)
[2019-09-10] MEDS ORDERED: Glycopyrrolate 0.2mg/ml 1ml Vial ONE (06:00)
[2019-09-10] MEDS ORDERED: Heplock Flush 100 units/ml 3 ml syr INJ ONE (07:50)
[2019-09-10 08:00] VITALS: BP 148/57
[2019-09-10 08:15] VITALS: BP 178/85
[2019-09-10 08:20] VITALS: BP 158/80
[2019-09-10 08:25] VITALS: BP 151/73
[2019-09-10 08:30] VITALS: BP 150/72
== END 2019-10-02 | disposition home or self-care (01) ==
LOC: ECT 05:09
DX: F31.63 Bipolar disorder, current episode mixed, severe, without psychotic features (principal)
CPT/HCPCS: 90870; J0330; J3360; J3490; J7040

== ENCOUNTER 2019-10-15 08:15 | Outpatient (RCR) | payer MEDICARE | END 2019-11-02 | disposition home or self-care (01) | LOC: ECT 08:15 | DX: F31.9 Bipolar disorder, unspecified (principal) ==